=== PATIENT | male | born 1950 | race Caucasian/White ===

== ENCOUNTER 2019-02-06 08:48 | Outpatient (CLI) | payer MEDICARE, OTHER, SELFPAY ==
[2019-02-06 10:54] LABS: Calculated LDL 92 mg/dL; Cholesterol 164 mg/dL (50-200); HDL Cholesterol 59 mg/dL (40-60); TSH 3.99 uIU/mL (0.36-3.74); Triglyceride 66 mg/dL (30-150)
[2019-02-07 10:36] LABS: PSA, Screening 2.5 ng/ml (0-4.5)
== END 2019-02-06 09:08 ==
PROVIDERS: PCP Emergency Medicine; Visit Provider Emergency Medicine
DX: Z12.5 Encounter for screening for malignant neoplasm of prostate (principal); E78.5 Hyperlipidemia, unspecified; E03.9 Hypothyroidism, unspecified
CPT/HCPCS: 36415; 80061; 84153; 84443

== ENCOUNTER 2019-03-20 00:59 | Outpatient (CLI) | payer MEDICARE, OTHER, SELFPAY ==
--- NOTE | 2019-03-20 07:30 | DI.US_ITS ---
APPROVED REPORT EXAM: Comprehensive 2D, Doppler, and color-flow Echocardiogram Patient Location: Out-Patient [employer]: Rox Valdez RDCS (AE) Rhythm: Bradycardia Indications: aortic regurg q23.8. 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 Conclusion Left Ventricle : The left ventricle is normal size. There is normal left ventricular wall thickness. Left ventricular diastolic function is indeterminate. Left ventricular systolic function is normal. There is normal LV segmental wall motion. LVEF is estimated to be 60-65%. Right Ventricle : Right ventricle is mildly dilated. The right ventricular systolic function is yamilet l. Atria : Left atrium is moderately dilated. Right atrium is mildly dilated. Aortic Valve : The Aortic valve is probably tricuspid and moderately sclerotic. Moderate to severe ao rtic regurgitation directed eccentrically posterior. Mild to moderate aortic stenosis (Mean gradient 33mmHg). 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 Mild to moderate mitral regurgitation. No evidence of mitral valve stenosis. Tricuspid Valve : The tricuspid valve leaflets are mildly thickened , but open well. Mild tricuspid r egurgitation. Great Vessels : The IVC is normal in size and collapses >50% with inspiration. Estimated RVSP is 23-3 1mmHg. There is no prior echocardiogram available for comparison. Wall motion Left Ventricle The left ventricle is normal size. Left ventricular systolic function is normal. There is normal left ventricular wall thickness. There is normal LV segmental wall motion. Left ventricular diastolic fun ction is indeterminate. LVEF is estimated to be 60-65%. Right Ventricle Right ventricle is mildly dilated. The right ventricular systolic function is normal. Atria Left atrium is moderately dilated. Right atrium is mildly dilated. Aortic Valve The Aortic valve is probably tricuspid and moderately sclerotic. Mild to moderate aortic stenosis (Me an gradient 33mmHg). Moderate to severe aortic regurgitation directed eccentrically posterior. Multip le regurgitant lesions make regurgitant volume difficult to quantify. 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 No evidence of mitral v alve stenosis. Mild to moderate mitral regurgitation. Tricuspid Valve The tricuspid valve leaflets are mildly thickened , but open well. Mild tricuspid regurgitation. Pulmonic Valve Pulmonic valve leaflets are mildly thickened. Trace to mild pulmonic regurgitation. Great Vessels The aortic root size is normal. The ascending aorta is mildly dilated (3.8cm). The IVC is normal in s ize and collapses >50% with inspiration. Estimated RVSP is 23-31mmHg. Pericardium There is no pericardial effusion. 2D Dimensions IVSd 1.20 cm M: 0.6-1.2 LV EDV A2C 122.80 mL PWd 1.20 cm M: 0.6 - 1.2 LV EDV A4C 159.00 mL LVDd 5.80 cm M: 4.2 - 5.8 LA Volume Index A2C 44.38 mL/m2 LVDs 3.80 cm M: 2.5 - 4.0 LA Volume Index A4C 47.24 mL/m2 Aortic Root 3.60 cm M: 3.1 - 3.7 LA Volume Index Biplane 46.92 mL/m2 RVID Base (AP4) 4.50 cm (M/F) 2.5-4.1 LA Area A4C 25.01 cm2 RA Area A4C 24.43 cm2 LA Area A2C 23.65 cm2 LVOT 2.20 cm (M/F) 1.5-2.5 EF AP4 60.00 % Ascending Aorta 3.80 cm M: 2.6 - 3.4 EF AP2 59.77 % LVEF (Teich) 62.92 % EF BP 59.29 % LVEF (Rajan's) 59.29 % M: 52 - 72 LV Volume 114.63 mL M: 62 - 150 LV Volume Index 60.97 mL/m2 M: 34 - 74 FS 34.55 % LV Diastology E/A Ratio 0.9 MED E' 0.07 (>0.07 m/s) LV E/e MED 6.15 (<14) LAT E' 0.09 (>0.1 m/s) LV E/e LAT 4.65 (<14) Pulm Vein s 0.38 m/s PV S/D Ratio 0.83 Pulm Vein d 0.45 m/s Pulm Vein a 0.27 m/s A-A Duration 185.09 msec Aortic Valve LVOT Area 3.95 cm2 LVOT Peak Chris. 1.25 m/s LVOT Mean Chris. 0.90 m/s LVOT Peak Gr. 6.30 mmHg MARY Vmax Index 0.71 cm2/m2 LVOT Mean Gr. 3.65 mmHg LVOT VTI 0.30 m MARY Mean Chris. Index 0.68 cm2/m2 AoV Peak Chris. 3.73 (0.5-1.3 m/s) AoV Mean Chris. 2.78 m/s AI PHT 491.00 msec AO Peak GR. 55.59 mmHg AO Mean GR. 33.35 (<5 mmHg) AO VTI 1.01 (0.18-0.25 m) VTI Ratio 0.34 MARY (VTI) 1.35 (2.5-4.5 cm2) MARY (VTI) Index 0.72 cm/m2 Vena Contraca 0.90 cm Mitral Valve MV E Max Chris. 0.44 (0.4-1.3 m/s) MV A Velocity 0.50 (0.4-1.3 m/s) E/A Ratio 0.80 MV Decel. Time 384.90 (160-240 msec) MV PHT 111.63 msec MVA PHT 1.95 cm2 Tricuspid Valve TR P. Velocity 2.44 m/s TV Regurg Vmax 2.44 m/s RAP Estimate 8.00 mmHg RVSP 31.90 mmHg TR P. Gradient 23.90 mmHg
== END 2019-03-20 01:19 ==
PROVIDERS: PCP Emergency Medicine; Visit Provider Emergency Medicine
DX: I35.2 Nonrheumatic aortic (valve) stenosis with insufficiency (principal); I51.7 Cardiomegaly; I34.0 Nonrheumatic mitral (valve) insufficiency
CPT/HCPCS: 93306

== ENCOUNTER 2019-04-23 09:13 | Outpatient (CLI) | payer MEDICARE, OTHER, SELFPAY | END 2019-04-23 09:33 | PROVIDERS: PCP Emergency Medicine; Visit Provider Internal Medicine Cardiovascular Disease | DX: I25.10 Atherosclerotic heart disease of native coronary artery without angina pectoris (principal); I35.1 Nonrheumatic aortic (valve) insufficiency; E78.5 Hyperlipidemia, unspecified | CPT/HCPCS: 99205; 93005; 93010 ==

== ENCOUNTER 2019-09-20 03:43 | Outpatient (CLI) | payer MEDICARE, OTHER, SELFPAY ==
[2019-09-20 12:07] LABS: TSH 2.71 uIU/mL (0.36-3.74)
== END 2019-09-20 04:03 ==
PROVIDERS: PCP Emergency Medicine; Visit Provider Emergency Medicine
DX: E03.9 Hypothyroidism, unspecified (principal)
CPT/HCPCS: 36415; 84443

== ENCOUNTER 2019-10-28 10:03 | Outpatient (CLI) | payer MEDICARE, OTHER, SELFPAY ==
[2019-10-30 18:14] LABS: SARS-CoV-2 RNA Undetected (Undetected)
== END 2019-10-28 10:23 ==
PROVIDERS: PCP Emergency Medicine; Visit Provider Emergency Medicine
DX: Z20.828 Contact with and (suspected) exposure to other viral communicable diseases (principal)
CPT/HCPCS: U0003

== ENCOUNTER → 2019-11-07 11:03 | Outpatient (BNVA) | payer MEDICARE, OTHER, SELFPAY | PROVIDERS: PCP Emergency Medicine; Referring Provider Emergency Medicine; Visit Provider Internal Medicine Cardiovascular Disease | DX: I25.10 Atherosclerotic heart disease of native coronary artery without angina pectoris (principal); E78.5 Hyperlipidemia, unspecified; Q24.5 Malformation of coronary vessels; I35.1 Nonrheumatic aortic (valve) insufficiency | CPT/HCPCS: 99442; 99213 ==

== ENCOUNTER 2020-01-06 07:48 | Outpatient (CLI) | payer MEDICARE, OTHER, SELFPAY ==
[2020-01-08 02:53] LABS: Patient Race White; SARS-CoV-2 RNA Undetected (Undetected); SARS-CoV-2 Specimen Source Nasopharynx
== END 2020-01-06 08:08 ==
PROVIDERS: PCP Emergency Medicine; Visit Provider Emergency Medicine
DX: Z11.59 Encounter for screening for other viral diseases (principal)
CPT/HCPCS: U0003

== ENCOUNTER 2020-01-31 02:37 | Outpatient (CLI) | payer MEDICARE, OTHER, SELFPAY ==
[2020-01-31 15:47] LABS: ALT 39 U/L (16-63); AST 29 U/L (15-37); Albumin 3.8 g/dL (3.4-5.0); Alkaline Phosphatase 63 U/L (46-116); Anion Gap 5.8 mmol/L (3-11); BUN 19 mg/dL (7-18); Bilirubin, Total 0.7 mg/dL (0.2-1.0); CO2 31.2 mmol/L (21.0-32.0); CREATININE 1.13 mg/dL (0.70-1.30); Calcium 9.1 mg/dL (8.5-10.1); Chloride 104 mmol/L (98-107); Glucose 86 mg/dL (74-106); Sodium 141 mmol/L (136-145); Total Protein 6.6 g/dL (6.4-8.2)
[2020-01-31 16:01] LABS: Calculated LDL 83 mg/dL (<100); Cholesterol 154 mg/dL (<200); HDL Cholesterol 54 mg/dL (40-60); TSH 3.24 uIU/mL (0.36-3.74); Triglyceride 87 mg/dL (<150)
[2020-02-05 16:21] LABS: PSA, Screening 3.4 ng/mL (0-4.5)
== END 2020-01-31 02:57 ==
PROVIDERS: Internal Medicine Cardiovascular Disease; PCP Emergency Medicine; Visit Provider Emergency Medicine
DX: E03.9 Hypothyroidism, unspecified (principal); E78.5 Hyperlipidemia, unspecified; Z85.46 Personal history of malignant neoplasm of prostate
CPT/HCPCS: 36415; 80053; 80061; 84153; 84443

== ENCOUNTER 2020-05-05 01:04 | Outpatient (CLI) | payer MEDICARE, OTHER, SELFPAY ==
--- NOTE | 2020-05-05 13:59 | DI.US_ITS ---
APPROVED REPORT EXAM: Comprehensive 2D, Doppler, and color-flow Echocardiogram Patient Location: Out-Patient Email Designer: Renetta Weiner RDCS (AE) Indications: Aortic Insufficiency Other Information Study Quality: Adequate Conclusion Left Ventricle : Left ventricle is mildly dilated. The left ventricular systolic function is normal. The left ventricular ejection fraction is within the normal range. There is normal left ventricular w all thickness. There is normal LV segmental wall motion. The left ventricular diastolic function is n ormal. LVEF is 60%. Right Ventricle : Right ventricle is mildly dilated. The right ventricular systolic function is yamilet l. The RVSP is 26.7 mmHg. Atria : Left atrium is moderately dilated. Right atrium is moderately dilated. Aortic Valve : The Aortic valve is sclerotic. Aortic valve is probably trileaflet. Moderate to severe aortic regurgitation Peak aortic valve gradient is 59.8mmHg. Highest mean aortic valve gradient is 36.8mmHg. Calculated MARY by the continuity equation is 1.27 Moderate aortic stenosis. Mitral Valve : Mild mitral annular calcification. Mild to moderate mitral regurgitation. No evidence of mitral valve stenosis. Great Vessels : The aortic root is normal in size. The ascending aorta is normal in size. Aortic arch is normal in caliber. IVC is normal in size and collapses >50% with inspiration. Compared to study from 03/20/2019, the patient's aortic stenosis has worsened slightly and his LV dim ensions have increased from 5.8 to 6 cm. Wall motion Left Ventricle Left ventricle is mildly dilated. The left ventricular systolic function is normal. The left ventricu lar ejection fraction is within the normal range. There is normal left ventricular wall thickness. Th ere is normal LV segmental wall motion. The left ventricular diastolic function is normal. There is n o ventricular septal defect visualized. LVEF is 60%. Right Ventricle Right ventricle is mildly dilated. The right ventricular systolic function is normal. The RVSP is 26. 7 mmHg. Atria Left atrium is moderately dilated. Right atrium is moderately dilated. The interatrial septum is inta ct with no evidence for an atrial septal defect. Aortic Valve The Aortic valve is sclerotic. Aortic valve is probably trileaflet. Peak aortic valve gradient is 59. 8mmHg. Highest mean aortic valve gradient is 36.8mmHg. Calculated MARY by the continuity equation is 1 .27 Moderate aortic stenosis. Moderate to severe aortic regurgitation Mitral Valve Mild mitral annular calcification. No evidence of mitral valve stenosis. Mild to moderate mitral regu rgitation. Tricuspid Valve The tricuspid valve is normal in structure. There is no tricuspid valve stenosis. Trace to mild tricu spid regurgitation. Pulmonic Valve The pulmonary valve is normal in structure. There is no pulmonic valvular stenosis. Trace pulmonic re gurgitation. Great Vessels The aortic root is normal in size. The ascending aorta is normal in size. Aortic arch is normal in ca liber. IVC is normal in size and collapses >50% with inspiration. Pericardium There is no pericardial effusion. 2D Dimensions IVSD d PLAX 1.05 cm M: 0.6-1.2 LV Vol A2C d MOD 202.5 mL LVPW d PLAX 1.03 cm M: 0.6 - 1.2 LV Vol A4C d MOD 194.6 mL LVID d PLAX 6.06 cm M: 4.2 - 5.8 LA vol/ BSA A2C s A-L 39.7 mL/m2 LVDs 3.85 cm M: 2.5 - 4.0 LA vol/ BSA A4C s A-L 40.2 mL/m2 Ao Root d 3.29 cm M: 3.1 - 3.7 LA Vol/ BSA Biplane s A-L 40.3 mL/m2 RA Area A4C 21.88 cm2 LA Area A4C s MOD 22.98 cm2 RA Vol/ BSA A4C s A-L 42.8 mL/m2 LA Area A2C s MOD 22.62 cm2 Ao Asc Diam d 3.43 cm M: 2.6 - 3.4 LV EF A4C MOD 60.3 % LV EF Teichholz 64.7 % LV EF A2C MOD 59.6 % LVEF (Rajan's) 60.19 % M: 52 - 72 LV EF Biplane MOD 60.2 % LV Volume 158.38 mL M: 62 - 150 SV 124.99 mL LV Volume Index 83.35 mL/m2 M: 34 - 74 SV Index 65.66 mL/m2 LV Vol Biplane MOD 207.7 mL FS 36.00 % M-Mode TAPSE 3.31 cm (M/F) >1.7 LV Diastology MV E' medial 0.094 (>0.07 m/s) E/A Ratio 1.1 LV E/e MED 6.45 (<14) MV E Vmax 0.61 (0.4-1.3 m/s) MV E' lateral 0.112 (>0.1 m/s) MV A Vmax 0.55 (0.4-1.3 m/s) LV E/e LAT 5.40 (<14) MV E/A Ratio 1.11 MV E/E' medial 6.49 MV E/E' lateral 5.43 Aortic Valve LVOT Area 3.10 cm2 AoV Area Vmax 1.27 cm2 LVOT Vmax 1.58 m/s AoV Area/ BSA (Vmax) 0.67 cm2/m2 LVOT Mean Chris. 1.25 m/s MARY Mean Chris. 1.34 cm2 LVOT Peak Grad 10.0 mmHg MARY Mean Chris. Index 0.71 cm2/m2 LVOT Mean Grad 6.6 mmHg AR DT 1878 msec LVOT VTI 0.373 m AR PHT 545 msec LVOT Diam s 1.95 cm AoV Vmax 3.86 m/s Velocity Ratio 0.40 AoV Mean Chris. 2.89 m/s AoV Peak Grad 59.8 mmHg LVOT SV 115.86 mL AoV Mean Grad 36.8 mmHg AoV VTI 0.982 m AoV Area VTI 1.18 cm2 AoV Area/ BSA (VTI) 0.62 cm/m2 Mitral Valve MV DT 205 (160-240 msec) MR Vmax 4.86 m/s MV PHT 59 msec MR VTI 1.530 m MV Area PHT 3.70 cm2 MR Peak Grad 94.7 mmHg MV VTI 0.193 m MR Mean Grad 67.2 mmHg MV Area VTI 6.01 (4.0-6.0 cm2) MR PISA Radius 0.55 cm MR EROA 0.13 cm2 MR Aliasing Velocity 0.35 m/s MR PISA 1.87 cm2 Pulmonary Valve PV Vmax 1.11 (0.5-1.5 m/s) RVOT Peak Gr. 2.03 mmHg PV Peak Grad 5.0 mmHg RVOT Mean Gr. 1.10 mmHg PV Mean Grad 2.9 mmHg RVOT VTI 0.156 m PV VTI 0.262 m RVOT Vmax 0.71 m/s Tricuspid Valve TR Peak Grad 23.7 mmHg TR Vmax 2.43 m/s RA Pressure 3.00 mmHg RVSP (TR) 26.7 mmHg
== END 2020-05-05 01:05 | disposition home or self-care (01) ==
LOC: DI 01:05
PROVIDERS: PCP Emergency Medicine; Visit Provider Internal Medicine Cardiovascular Disease
DX: Z98.890 Other specified postprocedural states (principal); I08.0 Rheumatic disorders of both mitral and aortic valves
CPT/HCPCS: 93306

== ENCOUNTER → 2020-05-15 13:32 | Outpatient (BNVA) | payer MEDICARE, OTHER, SELFPAY | PROVIDERS: PCP Emergency Medicine; Referring Provider Emergency Medicine; Visit Provider Internal Medicine Cardiovascular Disease | DX: I25.10 Atherosclerotic heart disease of native coronary artery without angina pectoris (principal); Z98.890 Other specified postprocedural states; E78.5 Hyperlipidemia, unspecified; Q24.5 Malformation of coronary vessels; I35.1 Nonrheumatic aortic (valve) insufficiency | CPT/HCPCS: 99214; 99213 ==

== ENCOUNTER 2020-10-12 07:19 | Day surgery (SDC) | payer MEDICARE, SELFPAY ==
[2020-10-12 07:50] VITALS: BP 113/54; PULSE 45; RESP 15; TEMP 36.1; O2SAT 100
[2020-10-12] MEDS: Tropicam./Phenyleph. (1/2.5%) 5 ML BTL OD ×3 (08:02→08:13)
--- NOTE | 2020-10-12 08:11 | W.ANESPRE ---
General Info Date of Service Date Performed: 10/12/20 Height: 5 ft 9 in Weight: 72.121 kg Body Mass Index (BMI): 23.4 Surgical Procedure: Operation Date: 10/12/20 09:40 Proposed Procedures Side Surgeon p Cataract Extraction with IOL Implant Right Julio Cesar Lee MD Meds Allergies and Home Medications Allergies Allergy/AdvReac Type Severity Reaction Status Date / Time No Known Allergies Allergy Verified 10/09/20 08:35 Home Medication Medication Instructions Recorded aspirin 81 mg tablet,delayed 81 mg PO HS 01/07/19 release levothyroxine 75 mcg PO HS 10/09/20 rosuvastatin 20 mg PO HS 10/09/20 Current Visit Medications: Current Medications Generic Name Dose Route Start Last Admin Trade Name Freq PRN Reason Stop Dose Admin Acetaminophen 1,000 mg 10/12/20 06:00 Acetaminophen 500 Mg Tab PO Q4H PRN PRN Miscellaneous Medication 0 ml 10/12/20 06:00 Prednisolone 1%, Moxifloxacin 0.5%, Nepafenac 0.1% 5ml Btl OD DIRECTED [facility] Miscellaneous Medication 0 ml 10/12/20 06:00 10/12/20 08:07 Tropicam./Phenyleph. 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 Left ventricular hypertrophy ~02/10/17 I51.7 Aortic regurgitation 04/2016 I35.1 S/P colonoscopic polypectomy 07/2015 Z98.890 Hypothyroidism ~06/2010 E03.9 Hyperlipidemia ~06/2010 E78.5 Medical History Medical History (Updated 10/11/20 @ 17:07 by Julio Cesar Lee MD) Anomaly of coronary artery (~05/10/17) Aortic regurgitation (04/2016) 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 (~04/24/17) Coronary artery disease involving [place] heart without angina pectoris (~05/10/17) Dislocated shoulder Hyperlipidemia (~06/2010) Left ventricular hypertrophy (~02/10/17) Surgical History Surgical History S/P colonoscopic polypectomy (07/2015) Tobacco Smoking/Tobacco Use Status: Never Passive smoking exposure: No Second hand exposure: No Alcohol Alcohol Intake: current Alcohol intake frequency: a few times a month Alcohol type: wine Substance Use Substance use: Never Substance use type: does not use Vital Signs and Lab Results Vital Signs Most Recent Vital Signs in EMR: Most Recent Vital Signs Temp Pulse Resp BP Pulse Ox 36.1 C L 45 L 15 113/54 L 100 10/12/20 07:50 10/12/20 07:50 10/12/20 07:50 10/12/20 07:50 10/12/20 07:50 Lab Results Blood Type / Crossmatch: No Data to Display Complete Blood Count: No Data to Display Complete Metabolic Panel: No Data to Display Liver Function Panel: No Data to Display Coagulation Panel: No Data to Display Cardiac Panel: No Data to Display Arterial Blood Gas: No Data to Display Venous Blood Gas: No Data to Display Pancreas Panel: No Data to Display Thyroid Panel: No Data to Display Infectious Disease: No Data to Display Blood Cultures: No Data to Display Toxicology Panel: No Data to Display Imaging and Studies Imaging and Studies Echocardiogram Summary: 05/05/20 Conclusion Left Ventricle : Left ventricle is mildly dilated. The left ventricular systolic function is normal. The left ventricular ejection fraction is within the normal range. There is normal left ventricular wall thickness. There is normal LV segmental wall motion. The left ventricular diastolic function is normal. LVEF is 60%. Right Ventricle : Right ventricle is mildly dilated. The right ventricular systolic function is normal. The RVSP is 26.7 mmHg. Atria : Left atrium is moderately dilated. Right atrium is moderately dilated. Aortic Valve : The Aortic valve is sclerotic. Aortic valve is probably trileaflet. Moderate to severe aortic regurgitation Peak aortic valve gradient is 59.8mmHg. Highest mean aortic valve gradient is 36.8mmHg. Calculated MARY by the continuity equation is 1.27 Moderate aortic stenosis. Mitral Valve : Mild mitral annular calcification. Mild to moderate mitral regurgitation. No evidence of mitral valve stenosis. Great Vessels : The aortic root is normal in size. The ascending aorta is normal in size. Aortic arch is normal in caliber. IVC is normal in size and collapses >50% with inspiration. Compared to study from 03/20/2019, the patient's aortic stenosis has worsened slightly and his LV dimensions have increased from 5.8 to 6 cm. Anesthesia Assessment and Plan Anesthesia History Personal History: No History of Anesthesia Complications Family History: No Family History of Anesthesia Complications Exercise Tolerance Exercise Tolerance: Metabolic Equivalents>4 Pertinent Negatives Pertinent Negatives: No Symptoms of GERD, No Major Pulmonary Symptoms or Complaints and No History of CVA/TIA Cardiac & Pulmonary Exam Cardiac Exam: Normal S1/S2 Heart Sounds Pulmonary Exam: Clear Bilateral Breath Sounds Airway Exam Known Difficult Airway: No Mallampati Class: 2 Mouth Opening: Normal (> 3cm) Thyromental Distance: Greater than 3 cm Neck Range of Motion: Full ROM Neck Circumference: Normal Teeth Condition: Normal Dentition ASA Classification ASA Score: ASA 3 Emergency Case?: No NPO Status NPO Status: NPO Clears >2 hours, Solids >8 hours Anesthesia Plan Resuscitation Status: Full Code Anesthesia Technique: MAC Anesthesia Airway Planned: Natural Airway Monitors Used: Standard Monitors
[2020-10-12 08:30] VITALS: BMI 23.4
[2020-10-12] MEDS: Tetracaine 0.5% 4 ML BTL OD (09:43)
[2020-10-12] MEDS: Balanced Salt Soln.-PLUS 500 ML BAG (09:44)
[2020-10-12] MEDS: Duovisc Viscoelastic System EACH 1 EACH (09:44)
[2020-10-12] MEDS: Lidocaine 1% Pres-Free 5 ML VIAL (09:45)
[2020-10-12] MEDS: Lidocaine 2% Jelly 6 ML SYR (09:46)
--- NOTE | 2020-10-12 09:52 | W.PM.DSUDISC ---
Discharge Plan Disposition Patient Disposition: HOME Condition: Good Discharge Details Reason For Visit: CATARACT Attending Provider: Julio Cesar Lee Primary Care Provider: Viraj Paez Home Meds and New Rx's Prescriptions: No Action aspirin [Aspirin Low Dose] 81 mg tablet,delayed release (DR/EC) 81 mg PO HS RF: 0 rosuvastatin 20 mg tablet 20 mg PO HS RF: 0 levothyroxine 75 mcg capsule 75 mcg PO HS RF: 0 Discharge Instructions Stand Alone Forms: Post-op Topical Cataract, Flor Ferris (DSU) Discharge Orders Discharge Orders: Discharge Order (Routine); Ordered 10/12/20 Ordered By: Julio Cesar Lee DS: Diagnosis Discharge Diagnosis (1) Cortical cataract of right eye: Status: Resolved (2) Nuclear sclerotic cataract of right eye: Status: Resolved
[2020-10-12] MEDS: Povidone-Iodine Ophth 30 ML BTL (09:53)
--- NOTE | 2020-10-12 09:53 | W.PM.OP ---
Date of service: 10/12/20 Time of Service: 09:53 Operative Note Operative Note DATE OF PROCEDURE: 10/12/20 PRE-OP DIAGNOSIS: Nuclear/cortical cataract, right eye POST-OP DIAGNOSIS: same PROCEDURE: Cataract extraction using phacoemulsification with intraocular lens implant, right eye SURGEON: Julio Cesar Lee ANESTHESIA TYPE: Local By Surgeon and MAC Refer to Anesthesia Record ESTIMATED BLOOD LOSS: 0 PATHOLOGY: none sent COMPLICATIONS: None Patient was transported to: same day Patient's condition: stable Implants: [employer] / [employer] Tecnis [id number] intraocular lens Indications: Progressive decreased vision due to cataract, right eye Procedure Description: CATARACT SURGERY OPERATIVE REPORT PREOPERATIVE DIAGNOSIS: Nuclear/cortical cataract, right eye POSTOPERATIVE DIAGNOSIS: Same OPERATION: Cataract extraction using phacoemulsification with posterior chamber intraocular lens implant, right eye. IOL: IOL [employer] Partner/Model: [employer] / HAILE Tecnis ZCB00 IOL Power: + 15.0 diopters IOL Serial Number: [id number] Optic Diameter: 6.0mm Haptic/Overall Diameter: 13.0mm PHACO INFO: Braeden Dishableurion Vision System with OZil and Active [employer]uidics Cumulative Dispersed Energy (CDE): 6.47 seconds SURGEON: Julio Cesar Lee MD, KARMEN ANESTHESIA: Monitored Anesthesia Care (MAC), with local sub-tenon's anesthetic infiltration COMPLICATIONS: None SPECIMENS: None INDICATIONS FOR PROCEDURE: The patient is a 70-year-old gentleman with history of diminished visual acuity in his right eye. He is noted to have a significant nuclear and cortical cataract in the right eye as well as moderate myopia. He elected to proceed without oral sedation. The patient was brought to the operating room where cardiopulmonary monitoring was instituted and surgical time-out was performed, confirming the correct operative eye and IOL power. Topical anesthesia was administered and ophthalmic povidone-iodine 5% was instilled into the conjunctival fornices. Lidocaine gel was applied to the cornea and the ida-ocular area was prepped with Betadine 10% solution and draped in the usual sterile fashion for intraocular surgery, including an aperture drape. A Tegaderm transparent film dressing was cut in half and used to cover the lashes and lid margins. Care was taken to sequester the lashes and lid margins under the Tegaderm dressing. A lid speculum was placed between the lids of the operative eye and the Jim-Sterling operating microscope was maneuvered into position. Kayce scissors were then used to make a conjunctival buttonhole approximately 6mm posterior to the limbus in the inferonasal quadrant. Blunt dissection was carried out to expose bare sclera, and a blunt-tipped sub-tenon?s anesthesia cannula was introduced and passed posteriorly along the globe where non-preserved plain lidocaine was injected into posterior sub-Tenon?s space. A sideport knife was used to make a paracentesis port inferiortemporally. Intraocular phenylephrine/lidocaine was injected into the anterior chamber. The anterior chamber was then filled with viscoelastic. A 2.4mm keratome knife was used to create a half-thickness groove at the limbus and then to construct a three-plane near-clear corneal tunnel extending 2.0mm into clear cornea in the superiortemporal position. . A flap was raised on the anterior capsule and capsulorhexis forceps were used to complete a continuous curvilinear capsulorhexis of 5.5 mm. Balanced salt solution was then used to perform cortical cleaving hydrodissection and nuclear hydrodelineation until the lens could be freely rotated within the capsular bag. The lens nucleus was then disassembled and removed within the capsular bag and iris plane using phacoemulsification. Residual cortical material was removed using the I/A handpiece. The posterior capsule was carefully polished to remove as much residual lens epithelial cells as safely possible. The capsular bag was then inflated and the anterior chamber deepened with viscoelastic. The lens implant described above was inserted into the capsular bag using the HAILE Mcdonald Injector. A Kuglen hook was used to dial the IOL into position. Residual viscoelastic was then removed first from posterior to the IOL, then from the anterior chamber using the I/A handpiece. The lens implant was noted to center nicely within the capsular bag. The incisions were stromally hydrated, and the anterior chamber was reformed using BSS. Then 0.5cc of moxifloxacin 1.0mg/ml were injected into the capsular bag and anterior chamber. The incisions were checked with a Weck spear and found to be secure. Several drops of ophthalmic povidone-iodine 5% were then applied to the eye followed by two drops of Imprimis combination prednisolone/moxifloxacin/nepafenac solution. The drapes were removed and a clear plastic protective eye shield was placed over the eye. The patient was then returned to Same Day Surgery in stable condition.
[2020-10-12 10:05] VITALS: BP 103/57; PULSE 41; RESP 14; TEMP 36; O2SAT 99
--- NOTE | 2020-10-12 10:22 | W.ANESPOSTOP ---
Postoperative Evaluation Date, Time and Location Date Performed: 10/12/20 Time Performed: 10:22 Patient Location: Day Surgery Unit Vital Signs Most Recent Imported Vital Signs: Most Recent Vital Signs Temp Pulse Resp BP Pulse Ox 36.0 C L 41 L 14 103/57 L 99 10/12/20 10:05 10/12/20 10:05 10/12/20 10:05 10/12/20 10:05 10/12/20 10:05 Pain Score Most Recent Pain Score: Most Recent Pain Score Pain Level 0 10/12/20 10:05 Assessment Mental Status: Awake (Alert & Oriented to Patient Baseline) Airway and Respiratory Function: Patent airway with normal (patient baseline) respiratory exam Cardiovascular Function: Hemodynamically Stable Hydration Status: Adequately Hydrated Nausea & Vomiting: No Nausea or Vomiting Pain: Pt. Denies Any Pain Peripheral Nerve Block: Patient did not receive a nerve block
== END 2020-10-12 10:15 | disposition home or self-care (01) ==
PROVIDERS: PCP Emergency Medicine; Visit Provider Ophthalmology
PROC: (CPT 66984; principal; 2020-10-12 09:30)
DX: H25.11 Age-related nuclear cataract, right eye (principal); I25.10 Atherosclerotic heart disease of native coronary artery without angina pectoris
CPT/HCPCS: 66984; V2632

== ENCOUNTER 2020-10-26 08:08 | Day surgery (SDC) | payer MEDICARE, SELFPAY ==
--- NOTE | 2020-10-26 08:28 | W.ANESPRE ---
General Info Date of Service Date Performed: 10/26/20 Height: 5 ft 9 in Weight: 72.121 kg Body Mass Index (BMI): 23.4 Surgical Procedure: Operation Date: 10/26/20 10:40 Proposed Procedures Side Surgeon p Cataract Extraction with IOL Implant Left Julio Cesar Lee MD Meds Allergies and Home Medications Allergies Allergy/AdvReac Type Severity Reaction Status Date / Time No Known Allergies Allergy Verified 10/26/20 08:28 Home Medication Medication Instructions Recorded aspirin 81 mg tablet,delayed 81 mg PO HS 01/07/19 release levothyroxine 75 mcg PO HS 10/09/20 rosuvastatin 20 mg PO HS 10/09/20 Current Visit Medications: Current Medications Generic Name Dose Route Start Last Admin Trade Name Freq PRN Reason Stop Dose Admin Acetaminophen 1,000 mg 10/26/20 06:00 Acetaminophen 500 Mg Tab PO Q4H PRN PRN Miscellaneous Medication 0 ml 10/26/20 06:00 Prednisolone 1%, Moxifloxacin 0.5%, Nepafenac 0.1% 5ml Btl OS DIRECTED [facility] Miscellaneous Medication 0 ml 10/26/20 06:00 Tropicam./Phenyleph. 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 Left ventricular hypertrophy ~02/10/17 I51.7 Aortic regurgitation 04/2016 I35.1 S/P colonoscopic polypectomy 07/2015 Z98.890 Hyperlipidemia ~06/2010 E78.5 Medical History Medical History Anomaly of coronary artery (~05/10/17) Aortic regurgitation (04/2016) 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 (~04/24/17) Coronary artery disease involving [place] heart without angina pectoris (~05/10/17) Dislocated shoulder Hyperlipidemia (~06/2010) Left ventricular hypertrophy (~02/10/17) Surgical History Surgical History Hx of cataract surgery Hx of shoulder surgery 1979, right dislocated S/P colonoscopic polypectomy (07/2015) Tobacco Smoking/Tobacco Use Status: Never Passive smoking exposure: No Second hand exposure: No Alcohol Alcohol Intake: current Alcohol intake frequency: a few times a month Alcohol type: wine Substance Use Substance use: Never Substance use type: does not use Vital Signs and Lab Results Lab Results Blood Type / Crossmatch: No Data to Display Complete Blood Count: No Data to Display Complete Metabolic Panel: No Data to Display Liver Function Panel: No Data to Display Coagulation Panel: No Data to Display Cardiac Panel: No Data to Display Arterial Blood Gas: No Data to Display Venous Blood Gas: No Data to Display Pancreas Panel: No Data to Display Thyroid Panel: No Data to Display Infectious Disease: No Data to Display Blood Cultures: No Data to Display Toxicology Panel: No Data to Display Imaging and Studies Imaging and Studies Echocardiogram Summary: 05/05/20 Conclusion Left Ventricle : Left ventricle is mildly dilated. The left ventricular systolic function is normal. The left ventricular ejection fraction is within the normal range. There is normal left ventricular wall thickness. There is normal LV segmental wall motion. The left ventricular diastolic function is normal. LVEF is 60%. Right Ventricle : Right ventricle is mildly dilated. The right ventricular systolic function is normal. The RVSP is 26.7 mmHg. Atria : Left atrium is moderately dilated. Right atrium is moderately dilated. Aortic Valve : The Aortic valve is sclerotic. Aortic valve is probably trileaflet. Moderate to severe aortic regurgitation Peak aortic valve gradient is 59.8mmHg. Highest mean aortic valve gradient is 36.8mmHg. Calculated MARY by the continuity equation is 1.27 Moderate aortic stenosis. Mitral Valve : Mild mitral annular calcification. Mild to moderate mitral regurgitation. No evidence of mitral valve stenosis. Great Vessels : The aortic root is normal in size. The ascending aorta is normal in size. Aortic arch is normal in caliber. IVC is normal in size and collapses >50% with inspiration. Compared to study from 03/20/2019, the patient's aortic stenosis has worsened slightly and his LV dimensions have increased from 5.8 to 6 cm. Anesthesia Assessment and Plan Anesthesia History Personal History: No History of Anesthesia Complications Family History: No Family History of Anesthesia Complications Exercise Tolerance Exercise Tolerance: Metabolic Equivalents>4 Pertinent Negatives Pertinent Negatives: No Symptoms of GERD, No Major Cardiovascular Symptoms or Complaints, No Major Pulmonary Symptoms or Complaints and No History of CVA/TIA Cardiac & Pulmonary Exam Cardiac Exam: Normal S1/S2 Heart Sounds Pulmonary Exam: Clear Bilateral Breath Sounds Airway Exam Known Difficult Airway: No Mallampati Class: 2 Mouth Opening: Normal (> 3cm) Thyromental Distance: Greater than 3 cm Neck Range of Motion: Full ROM Neck Circumference: Normal Teeth Condition: Normal Dentition ASA Classification ASA Score: ASA 3 Emergency Case?: No NPO Status NPO Status: NPO Clears >2 hours, Solids >8 hours Anesthesia Plan Resuscitation Status: Full Code Anesthesia Technique: MAC Anesthesia Airway Planned: Natural Airway Monitors Used: Standard Monitors
[2020-10-26] MEDS: Tropicam./Phenyleph. (1/2.5%) 5 ML BTL OS ×3 (08:29→08:39)
[2020-10-26 08:30] VITALS: BP 112/65; PULSE 46; RESP 16; TEMP 35.9; O2SAT 99
[2020-10-26 08:53] VITALS: BMI 23.4
[2020-10-26] MEDS: Tetracaine 0.5% 4 ML BTL OS (09:22)
[2020-10-26] MEDS: Lidocaine 2% Jelly 6 ML SYR (09:22)
[2020-10-26] MEDS: Povidone-Iodine Ophth 30 ML BTL (09:22)
[2020-10-26] MEDS: Lidocaine 1% Pres-Free 5 ML VIAL (09:30)
--- NOTE | 2020-10-26 09:30 | RT.EKG_ITS ---
APPROVED REPORT Exam: Resting ECG Reason for Exam: New potential 2nd degree AV block Patient Location: O HR:42 bpm ECG Measurements Heart Rate 42 AXIS MA 394 P 45 QRSd 100 QRS 56 QT 510 T 15 QTc 427 Conclusion Second degree AV block, Mobitz II...multiple P waves Atrial premature complex...SV complex w/ short R-R interval
[2020-10-26] MEDS: Balanced Salt Soln.-PLUS 500 ML BAG (09:31)
[2020-10-26] MEDS: Duovisc Viscoelastic System EACH 1 EACH (09:31)
--- NOTE | 2020-10-26 09:49 | W.PM.DSUDISC ---
Discharge Plan Disposition Patient Disposition: HOME Condition: Good Discharge Details Attending Provider: Julio Cesar Lee Primary Care Provider: Viraj Paez Home Meds and New Rx's Prescriptions: No Action aspirin [Aspirin Low Dose] 81 mg tablet,delayed release (DR/EC) 81 mg PO HS RF: 0 rosuvastatin 20 mg tablet 20 mg PO HS RF: 0 levothyroxine 75 mcg capsule 75 mcg PO HS RF: 0 Discharge Instructions Stand Alone Forms: Post-op Topical Cataract, Flor Ferris (DSU) Discharge Orders Discharge Orders: Discharge Order (Routine); Ordered 10/26/20 Ordered By: Julio Cesar Lee DS: Diagnosis Discharge Diagnosis (1) Nuclear sclerotic cataract of left eye: Status: Resolved (2) Cortical cataract of left eye: Status: Resolved
[2020-10-26 09:50] VITALS: BP 110/47; PULSE 42; RESP 16; TEMP 36.2; O2SAT 98
--- NOTE | 2020-10-26 09:50 | ROE_ITS ---
Date of service: 10/26/20 Time of Service: 09:50 Operative Note Operative Note DATE OF PROCEDURE: 10/26/20 PRE-OP DIAGNOSIS: Nuclear/cortical cataract, left eye POST-OP DIAGNOSIS: same PROCEDURE: Cataract extraction using phacoemulsification with intraocular lens implant, left eye SURGEON: Julio Cesar Lee ANESTHESIA TYPE: Local By Surgeon and MAC Refer to Anesthesia Record PATHOLOGY: none sent COMPLICATIONS: None Patient was transported to: same day Patient's condition: stable Implants: Manuel [employer] Manuel / [employer] Tecnis [id number] Indications: Progressive decreased vision due to cataract, left eye, with poor red reflex Procedure Description: CATARACT SURGERY OPERATIVE REPORT PREOPERATIVE DIAGNOSIS: 1. Nuclear/cortical cataract, left eye POSTOPERATIVE DIAGNOSIS: Same OPERATION: 1. Cataract extraction using phacoemulsification with posterior chamber intraocular lens implant, left eye. IOL: IOL Retort Load Expediter/Model: Manuel & Manuel / HAILE Tecnis [id number] IOL Power: + 15.0 diopters IOL Serial Number: [id number] Optic Diameter: 6.0 mm Haptic/Overall Diameter: 13.0 mm PHACO INFO: Braeden maufaiturion Vision System with OZil and Active Fluidics Cumulative Dispersed Energy (CDE): 4.54 seconds SURGEON: Julio Cesar Lee MD, KARMEN ANESTHESIA: Monitored A [facility] (MAC), with local sub-tenon's anesthetic infiltration COMPLICATIONS: None SPECIMENS: None INDICATIONS FOR PROCEDURE: Patient is a 70-year-old gentleman with history of diminished visual acuity in both eyes secondary to the development of bilateral nuclear and cortical cataract. He has already undergone cataract surgery in the right eye and is doing well postoperatively. He now presents for cataract surgery in the left eye. PROCEDURE: The correct surgical eye was identified and marked as the left eye and the pupil was dilated in the preoperative area using mydriatics and cycloplegics. The dilated pupil size was 7.0 mm. He elected to proceed without oral sedation. The patient was brought to the operating room where cardiopulmonary monitoring was instituted and surgical time-out was performed, confirming the correct operative eye and IOL power. Topical anesthesia was administered and ophthalmic povidone-iodine 5% was instilled into the conjunctival fornices. Lidocaine gel was applied to the cornea and the ida-ocular area was prepped with Betadine 10% solution and draped in the usual sterile fashion for intraocular surgery, including an aperture drape. A Tegaderm transparent film dressing was cut in half and used to cover the lashes and lid margins. Care was taken to sequester the lashes and lid margins under the Tegaderm dressing. A lid speculum was placed between the lids of the operative eye and the Jim-Sterling operating microscope was maneuvered into position. Kayce scissors were then used to make a conjunctival buttonhole approximately 6mm posterior to the limbus in the inferonasal quadrant. Blunt dissection was carried out to expose bare sclera, and a blunt-tipped sub-tenon?s anesthesia cannula was introduced and passed posteriorly along the globe where non- preserved plain lidocaine was injected into posterior sub-Tenon?s space. A sideport knife was used to make a paracentesis port superiorly/superiortemporally. Intraocular phenylephrine/lidocaine was injected int the anterior chamber.. Air was then injected into the anterior chamber, followed by Vision Blue, which was painted over the anterior capsule and then irrigated out using BSS. The anterior chamber was filled with viscoelastic. A 2.4mm keratome knife was used to create a half-thickness groove at the limbus and then to construct a three-plane near-clear corneal tunnel extending 2.0mm into clear cornea at the 3:00 position. A flap was raised on the anterior capsule and capsulorhexis forceps were used to complete a continuous curvilinear capsulorhexis of 5.5 mm. Balanced salt solution was then used to perform cortical cleaving hydrodissection and nuclear hydrodelineation until the lens could be freely rotated within the capsular bag. The lens nucleus was then disassembled and removed within the capsular bag and iris plane using phacoemulsification. Residual cortical material was removed using the 45-degree angled silicone I/A tip with 0.3mm port. The posterior capsule was carefully polished to remove as much residual lens epithelial cells as safely possible. The capsular bag was then inflated and the anterior chamber deepened with viscoelastic. The lens implant described above was inserted into the capsular bag using the HAILE [place] Injector. A Kuglen hook was used to dial the IOL into position. Residual viscoelastic was then removed first from posterior to the IOL, then from the anterior chamber using the I/A handpiece. The lens implant was noted to center nicely within the capsular bag. The incisions were stromally hydrated, and the anterior chamber was reformed using BSS. Then 0.5cc of moxifloxacin 1.0mg/ml were injected into the capsular bag and anterior chamber. The incisions were checked with a Weck spear and found to be secure. Several drops of ophthalmic povidone-iodine 5% were then applied to the eye followed by two drops of Imprimis combination prednisolone/moxifloxacin/nepafenac solution. The drapes were removed and a clear plastic protective eye shield was placed over the eye. The patient was then returned to [facility] Day Surgery in stable condition.
--- NOTE | 2020-10-26 10:07 | W.ANESPOSTOP ---
Postoperative Evaluation Date, Time and Location Date Performed: 10/26/20 Time Performed: 10:08 Patient Location: PACU Vital Signs Most Recent Imported Vital Signs: Most Recent Vital Signs Temp Pulse Resp BP Pulse Ox 36.2 C L 42 L 16 110/47 L 98 10/26/20 09:50 10/26/20 09:50 10/26/20 09:50 10/26/20 09:50 10/26/20 09:50 Pain Score Most Recent Pain Score: Most Recent Pain Score Pain Level 0 10/26/20 09:50 Assessment Mental Status: Awake (Alert & Oriented to Patient Baseline) Airway and Respiratory Function: Patent airway with normal (patient baseline) respiratory exam Cardiovascular Function: Hemodynamically Stable Hydration Status: Adequately Hydrated Nausea & Vomiting: No Nausea or Vomiting Pain: Pt. Denies Any Pain Peripheral Nerve Block: Patient did not receive a nerve block Teaching Patient Teaching: Advised to seek followup for the following concerns (See explanation) (see below) Concerns: Other Postoperative Comments:: post operative 12 lead reveals 2nd degree HB. His BP is normal, he feels no palpitations, denies dizziness or lightheadedness. EKG shown to cardiology, who agrees that if he is asymptomatic that he is okay to go home. Jose Armando was educated on all of this and was told to follow up with his PCP. Jose Armando states that he has an appointment with cardiology in early November, and states he can call his PCP to make sure they are okay with him waiting until november. he verbalizes understanding.
== END 2020-10-26 10:38 | disposition home or self-care (01) ==
PROVIDERS: PCP Emergency Medicine; Visit Provider Ophthalmology
PROC: (CPT 66984; principal; 2020-10-26 10:30)
DX: H25.12 Age-related nuclear cataract, left eye (principal)
CPT/HCPCS: 66984; V2632

== ENCOUNTER 2020-11-11 02:21 | Outpatient (CLI) | payer MEDICARE, SELFPAY ==
--- NOTE | 2020-11-11 10:24 | DI.US_ITS ---
APPROVED REPORT EXAM: Comprehensive 2D, Doppler, and color-flow Echocardiogram Patient Location: Out-Patient Cat Driver: Renetta Weiner RDCS (AE) Indications: Aortic Insufficiency Other Information Study Quality: Adequate Conclusion Left Ventricle : The left ventricle is upper normal size. The left ventricular ejection fraction is w ithin the normal range. There is normal left ventricular wall thickness. There is normal LV segmental wall motion. The left ventricular diastolic function is normal. LVEF is 60-65%. Right Ventricle : The right ventricle is normal size. The right ventricular systolic function is norm al. Atria : Left atrium is mildly dilated. Right atrium is mildly dilated. Aortic Valve : The Aortic valve is sclerotic. Aortic valve is calcified. Aortic valve is probably tri leaflet. Moderate to severe aortic regurgitation Moderate aortic stenosis. Peak aortic valve gradien t is 57.2_mmHg. Highest mean aortic valve gradient is 34.3_mmHg. Calculated MARY by the continuity equ ation is 1.07cm2. Mitral Valve : Mild mitral annular calcification. Moderate mitral regurgitation. No evidence of luh l valve stenosis. Great Vessels : The aortic root is normal in size. The ascending aorta is mildly dilated. Aortic arch is normal in caliber. IVC is normal in size and collapses >50% with inspiration. Compared to study from 05/05/2020, there is no significant change. Wall motion Left Ventricle The left ventricle is upper normal size. The left ventricular ejection fraction is within the normal range. There is normal left ventricular wall thickness. There is normal LV segmental wall motion. The left ventricular diastolic function is normal. There is no ventricular septal defect visualized. LVE F is 60-65%. Right Ventricle The right ventricle is normal size. The right ventricular systolic function is normal. Atria Left atrium is mildly dilated. Right atrium is mildly dilated. The interatrial septum is intact with no evidence for an atrial septal defect. Aortic Valve The Aortic valve is sclerotic. Aortic valve is calcified. Aortic valve is probably trileaflet. Modera te aortic stenosis. Peak aortic valve gradient is 57.2_mmHg. Highest mean aortic valve gradient is 34 .3_mmHg. Calculated MARY by the continuity equation is 1.07cm2. Moderate to severe aortic regurgitatio n Mitral Valve Mild mitral annular calcification. No evidence of mitral valve stenosis. Moderate mitral regurgitatio n. Tricuspid Valve The tricuspid valve is normal in structure. There is no tricuspid valve stenosis. Trace tricuspid reg urgitation. Pulmonic Valve The pulmonary valve is normal in structure. There is no pulmonic valvular stenosis. Trace pulmonic re gurgitation. Great Vessels The aortic root is normal in size. The ascending aorta is mildly dilated. Aortic arch is normal in ca liber. IVC is normal in size and collapses >50% with inspiration. Pericardium There is no pericardial effusion. 2D Dimensions IVSD d PLAX 1.01 cm M: 0.6-1.2 LV Vol A2C d MOD 200.3 mL LVPW d PLAX 1.00 cm M: 0.6 - 1.2 LV Vol A4C d MOD 177.8 mL LVID d PLAX 5.88 cm M: 4.2 - 5.8 LA vol/ BSA A2C s A-L 39.6 mL/m2 LVDs 4.00 cm M: 2.5 - 4.0 LA vol/ BSA A4C s A-L 32.8 mL/m2 Ao Root d 3.38 cm M: 3.1 - 3.7 LA Vol/ BSA Biplane s A-L 36.9 mL/m2 RA Area A4C 17.40 cm2 LA Area A4C s MOD 19.99 cm2 RA Vol/ BSA A4C s A-L 28.7 mL/m2 LA Area A2C s MOD 22.46 cm2 Ao Asc Diam d 3.58 cm M: 2.6 - 3.4 LV EF A4C MOD 60.1 % LV EF Teichholz 58.8 % LV EF A2C MOD 65.1 % LVEF (Rajan's) 63.48 % M: 52 - 72 LV EF Biplane MOD 63.5 % LV Volume 148.12 mL M: 62 - 150 SV 122.39 mL LV Volume Index 79.63 mL/m2 M: 34 - 74 SV Index 65.67 mL/m2 LV Vol Biplane MOD 192.8 mL FS 31.60 % M-Mode TAPSE 2.51 cm (M/F) >1.7 LV Diastology MV E' medial 0.079 (>0.07 m/s) E/A Ratio 0.9 LV E/e MED 6.20 (<14) MV E Vmax 0.50 (0.4-1.3 m/s) MV E' lateral 0.101 (>0.1 m/s) MV A Vmax 0.55 (0.4-1.3 m/s) LV E/e LAT 4.85 (<14) MV E/A Ratio 0.87 MV E/E' medial 6.24 MV E/E' lateral 4.88 Aortic Valve LVOT Area 3.22 cm2 AoV Area Vmax 1.07 cm2 LVOT Vmax 1.26 m/s AoV Area/ BSA (Vmax) 0.58 cm2/m2 LVOT Mean Chris. 0.85 m/s MARY Mean Chris. 0.98 cm2 LVOT Peak Grad 6.3 mmHg MARY Mean Chris. Index 0.52 cm2/m2 LVOT Mean Grad 3.4 mmHg AR DT 2466 msec LVOT VTI 0.336 m AR PHT 715 msec LVOT Diam s 2.00 cm AoV Vmax 3.78 m/s Velocity Ratio 0.33 AoV Mean Chris. 2.80 m/s AoV Peak Grad 57.2 mmHg LVOT SV 108.23 mL AoV Mean Grad 34.3 mmHg AoV VTI 0.975 m AoV Area VTI 1.11 cm2 AoV Area/ BSA (VTI) 0.60 cm/m2 Mitral Valve MV DT 160 (160-240 msec) MR Vmax 4.96 m/s MV PHT 46 msec MR VTI 1.668 m MV Area PHT 4.75 cm2 MR Peak Grad 98.5 mmHg MR Mean Grad 71.6 mmHg MR PISA Radius 0.47 cm MR EROA 0.10 cm2 MR Aliasing Velocity 0.35 m/s MR PISA 1.42 cm2 Pulmonary Valve PV Vmax 0.84 (0.5-1.5 m/s) RVOT Peak Gr. 2.51 mmHg PV Peak Grad 2.8 mmHg RVOT Mean Gr. 1.15 mmHg PV Mean Grad 1.4 mmHg RVOT VTI 0.189 m PV VTI 0.179 m RVOT Vmax 0.79 m/s Tricuspid Valve TR Peak Grad 21.2 mmHg TR Vmax 2.31 m/s RA Pressure 3.00 mmHg RVSP (TR) 24.3 mmHg
== END 2020-11-11 02:41 ==
PROVIDERS: PCP Emergency Medicine; Visit Provider Internal Medicine Cardiovascular Disease
DX: I08.0 Rheumatic disorders of both mitral and aortic valves; I77.810 Thoracic aortic ectasia
CPT/HCPCS: 93306

== ENCOUNTER → 2020-11-17 10:36 | Outpatient (BNVA) | payer MEDICARE, SELFPAY | PROVIDERS: PCP Emergency Medicine; Referring Provider Emergency Medicine; Visit Provider Internal Medicine Cardiovascular Disease | DX: I25.10 Atherosclerotic heart disease of native coronary artery without angina pectoris (principal); I51.7 Cardiomegaly; I35.1 Nonrheumatic aortic (valve) insufficiency; Z98.890 Other specified postprocedural states | CPT/HCPCS: 99214; 99213 ==

== ENCOUNTER 2020-12-15 07:28 | Outpatient (CLI) | payer MEDICARE, SELFPAY ==
--- NOTE | 2021-01-12 15:53 | ZIOP_ITS ---
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 Average heart rate was 56. Minimum was 36 maximum 129. there were occasional ventricular ectopic beats,comprising 0.45% of total beats There were rare ventricular couplets. There were 2 ventricular triplets.. There was one 9 beat run of nonsustained ventricular tachycardia Mobitz 1 second-degree AV block was noted during sleep There were no pauses greater than 3 seconds. There was no atrial fibrillation. Patient symptoms were reported
== END 2020-12-15 07:29 | disposition home or self-care (01) ==
LOC: RT 07:35
PROVIDERS: PCP Emergency Medicine; Visit Provider Internal Medicine Cardiovascular Disease
DX: R00.2 Palpitations (principal)
CPT/HCPCS: 93246

== ENCOUNTER 2021-01-12 15:53 | Outpatient (CLI) | payer MEDICARE, SELFPAY | END 2021-01-12 15:54 | LOC: CARDO 01-13 09:51 | PROVIDERS: PCP Emergency Medicine; Referring Provider Emergency Medicine; Visit Provider Internal Medicine Cardiovascular Disease | DX: R00.2 Palpitations (principal); I49.3 Ventricular premature depolarization; I47.2 Ventricular tachycardia; I44.1 Atrioventricular block, second degree | CPT/HCPCS: 93248 ==

== ENCOUNTER 2021-01-20 13:30 | Outpatient (CLI) | payer MEDICARE, SELFPAY ==
--- NOTE | 2021-01-20 11:30 | DI.RAD_ITS ---
Exam(s) XR LUMBAR SPINE COMPLETE EXAM: XR LUMBAR SPINE COMPLETE CLINICAL HISTORY: left sciatica,m54.32. TECHNIQUE: 2D digital imaging was performed of the lumbar spine. Five images were obtained. AP, la teral, right oblique, left oblique and L5-S1 spot views were obtained. COMPARISON: No exams were available for comparison FINDINGS: BONES: No fracture or destructive lesion. Small osteophytes are seen at the L1-L2 and L5-S1 disc spac es. No facet hypertrophy identified. DISKS: There is disc space narrowing at L1-L2 and L5-S1. ALIGNMENT: Lumbar spinal alignment is within normal limits. No spondylolysis or spondylolisthesis. SOFT TISSUE: Normal. IMPRESSION: Mild degenerative changes of the lumbar spine. DATA REPOSITORY: RADIATION DOSE DELIVERED:
== END 2021-01-20 13:50 ==
PROVIDERS: PCP Emergency Medicine; Visit Provider Emergency Medicine
DX: M25.552 Pain in left hip (principal); M54.32 Sciatica, left side; M51.17 Intervertebral disc disorders with radiculopathy, lumbosacral region
CPT/HCPCS: 72110

== ENCOUNTER 2021-01-26 21:06 | Outpatient (REF) | payer MEDICARE, SELFPAY ==
[2021-01-26 21:08] LABS: TSH 2.53 uIU/mL (0.36-3.74)
[2021-01-27 17:44] LABS: PSA, Diagnostic 6.8 ng/mL (0.0-6.5)
== END 2021-01-26 21:07 | disposition home or self-care (01) ==
LOC: LBN 21:06
PROVIDERS: PCP Emergency Medicine; Visit Provider Emergency Medicine
DX: E03.9 Hypothyroidism, unspecified (principal); N40.0 Benign prostatic hyperplasia without lower urinary tract symptoms
CPT/HCPCS: 84153; 84443

== ENCOUNTER 2021-03-05 02:55 | Outpatient (CLI) | payer MEDICARE, SELFPAY ==
[2021-03-05 22:46] LABS: PSA, Diagnostic 7.1 ng/mL (0.0-6.5)
== END 2021-03-05 02:56 | disposition home or self-care (01) ==
LOC: LBO 02:57
PROVIDERS: PCP Emergency Medicine; Visit Provider Emergency Medicine
DX: R97.20 Elevated prostate specific antigen [PSA] (principal)
CPT/HCPCS: 36415; 84153

== ENCOUNTER → 2021-04-12 08:43 | Outpatient (BNVA) | payer MEDICARE, SELFPAY | PROVIDERS: PCP Emergency Medicine; Referring Provider Emergency Medicine; Visit Provider Nurse Practitioner Gerontology | DX: R39.89 Other symptoms and signs involving the genitourinary system (principal); R97.20 Elevated prostate specific antigen [PSA] | CPT/HCPCS: 99214 ==

== ENCOUNTER 2021-04-14 03:27 | Outpatient (CLI) | payer MEDICARE, SELFPAY | END 2021-04-14 03:28 | disposition home or self-care (01) | LOC: LBO 03:27 | PROVIDERS: PCP Emergency Medicine; Visit Provider Nurse Practitioner Gerontology | DX: N40.2 Nodular prostate without lower urinary tract symptoms (principal); R97.20 Elevated prostate specific antigen [PSA] | CPT/HCPCS: 36415; 82565 ==

== ENCOUNTER → 2021-05-07 13:05 | Outpatient (BNVA) | payer MEDICARE, SELFPAY | PROVIDERS: PCP Family Medicine; Referring Provider Emergency Medicine; Visit Provider Physical Therapy Assistant | DX: Z12.11 Encounter for screening for malignant neoplasm of colon (principal); Z80.0 Family history of malignant neoplasm of digestive organs ==

== ENCOUNTER → 2021-05-11 13:00 | Outpatient (BNVA) | payer MEDICARE, SELFPAY | PROVIDERS: PCP Family Medicine; Referring Provider Emergency Medicine; Visit Provider Nurse Practitioner Gerontology | DX: N40.2 Nodular prostate without lower urinary tract symptoms (principal); R97.20 Elevated prostate specific antigen [PSA] | CPT/HCPCS: 99214 ==

== ENCOUNTER 2021-05-12 00:31 | Outpatient (CLI) | payer MEDICARE, SELFPAY ==
--- NOTE | 2021-05-12 14:03 | DI.US_ITS ---
APPROVED REPORT EXAM: Comprehensive 2D, Doppler, and color-flow Echocardiogram Patient Location: Out-Patient Shank Piece Tacker: Renetta Weiner RDCS (AE) Indications: Aortic insufficiency, Aortic Stenosis Other Information Study Quality: Adequate Conclusion Left ventricle is borderline dilated. Wall thickness is normal. Estimated ejection fraction is 60 t o 65%. There are no segmental wall motion abnormalities Normal right ventricular size and systolic function Both atria are moderately dilated The aortic valve is sclerotic, probably trileaflet. There is moderate to severe aortic regurgitation . There is severe aortic stenosis. Peak gradient is 71, mean 42 Thickened mitral leaflets. Mild to moderate mitral regurgitation Normal tricuspid valve with mild regurgitation. Estimated right ventricular systolic pressure is 31 mmHg Mildly dilated ascending aorta measuring 3.82 cm Compared to previous, the degree of aortic stenosis appears to have worsened Wall motion Left Ventricle Left ventricle is mildly dilated. The left ventricular systolic function is normal. The left ventricu lar ejection fraction is within the normal range. There is normal left ventricular wall thickness. Th ere is normal LV segmental wall motion. There is no ventricular septal defect visualized. LVEF is 63% . Right Ventricle The right ventricle is normal size. The right ventricular systolic function is normal. The RVSP is 30 .6 mmHg. Atria Left atrium is moderately dilated. Right atrium is moderately dilated. The interatrial septum is inta ct with no evidence for an atrial septal defect. Aortic Valve Aortic valve is calcified. Number of aortic valve leaflets could not be assessed. Severe aortic steno sis. Peak aortic valve gradient is 71.0mmHg. Highest mean aortic valve gradient is 41.8mmHg. Moderate to severe aortic regurgitation Mitral Valve Mitral valve leaflets are thickened. No evidence of mitral valve stenosis. Mild to moderate mitral re gurgitation. Tricuspid Valve The tricuspid valve is normal in structure. There is no tricuspid valve stenosis. Mild tricuspid regu rgitation. Pulmonic Valve The pulmonary valve is normal in structure. There is no pulmonic valvular stenosis. Trace pulmonic re gurgitation. Great Vessels The aortic root is normal in size. The ascending aorta is mildly dilated. Aortic arch is normal in ca liber. IVC is normal in size and collapses >50% with inspiration. Pericardium There is no pericardial effusion. 2D Dimensions IVSD d PLAX 1.01 cm M: 0.6-1.2 LV Vol A2C d MOD 194.8 mL LVPW d PLAX 1.04 cm M: 0.6 - 1.2 LV Vol A4C d MOD 227.5 mL LVID d PLAX 5.96 cm M: 4.2 - 5.8 LA vol/ BSA A2C s A-L 50.1 mL/m2 LVDs 3.75 cm M: 2.5 - 4.0 LA vol/ BSA A4C s A-L 43.0 mL/m2 Ao Root d 3.46 cm M: 3.1 - 3.7 LA Vol/ BSA Biplane s A-L 47.1 mL/m2 RA Area A4C 18.98 cm2 LA Area A4C s MOD 23.35 cm2 RA Vol/ BSA A4C s A-L 32.0 mL/m2 LA Area A2C s MOD 25.55 cm2 Ao Asc Diam d 3.82 cm M: 2.6 - 3.4 LV EF A4C MOD 62.4 % LV EF Teichholz 65.4 % LV EF A2C MOD 63.2 % LVEF (Rajan's) 63.45 % M: 52 - 72 LV EF Biplane MOD 63.5 % LV Volume 163.91 mL M: 62 - 150 SV 136.37 mL LV Volume Index 86.26 mL/m2 M: 34 - 74 SV Index 71.64 mL/m2 LV Vol Biplane MOD 214.9 mL FS 36.45 % M-Mode TAPSE 2.97 cm (M/F) >1.7 LV Diastology MV E' medial 0.086 (>0.07 m/s) E/A Ratio 0.9 LV E/e MED 7.30 (<14) MV E Vmax 0.63 (0.4-1.3 m/s) MV E' lateral 0.109 (>0.1 m/s) MV A Vmax 0.70 (0.4-1.3 m/s) LV E/e LAT 5.75 (<14) MV E/A Ratio 0.89 MV E/E' medial 7.32 MV E/E' lateral 5.79 Aortic Valve LVOT Area 4.01 cm2 AoV Area Vmax 1.59 cm2 LVOT Vmax 1.67 m/s AoV Area/ BSA (Vmax) 0.83 cm2/m2 LVOT Mean Chris. 1.18 m/s MARY Mean Chris. 1.54 cm2 LVOT Peak Grad 11.1 mmHg MARY Mean Chris. Index 0.81 cm2/m2 LVOT Mean Grad 6.4 mmHg AR DT 1828 msec LVOT VTI 0.470 m AR PHT 530 msec LVOT Diam s 2.25 cm AoV Vmax 4.21 m/s Velocity Ratio 0.39 AoV Mean Chris. 3.09 m/s AoV Peak Grad 71.0 mmHg LVOT SV 188.65 mL AoV Mean Grad 41.8 mmHg AoV VTI 1.048 m AoV Area VTI 1.80 cm2 AoV Area/ BSA (VTI) 0.95 cm/m2 Mitral Valve MV DT 137 (160-240 msec) MV PHT 40 msec MV Area PHT 5.55 cm2 Pulmonary Valve PV Vmax 1.27 (0.5-1.5 m/s) RVOT Peak Gr. 2.32 mmHg PV Peak Grad 6.4 mmHg RVOT Mean Gr. 1.25 mmHg PV Mean Grad 3.3 mmHg RVOT VTI 0.176 m PV VTI 0.263 m RVOT Vmax 0.76 m/s Tricuspid Valve TR Peak Grad 27.6 mmHg TR Vmax 2.63 m/s RA Pressure 3.00 mmHg RVSP (TR) 30.6 mmHg
== END 2021-05-12 00:51 ==
PROVIDERS: PCP Family Medicine; Visit Provider Internal Medicine Cardiovascular Disease
DX: Z98.890 Other specified postprocedural states (principal); I35.0 Nonrheumatic aortic (valve) stenosis
CPT/HCPCS: 93306

== ENCOUNTER → 2021-05-24 10:52 | Outpatient (BNVA) | payer MEDICARE, SELFPAY | PROVIDERS: PCP Family Medicine; Visit Provider Internal Medicine Cardiovascular Disease | DX: I35.1 Nonrheumatic aortic (valve) insufficiency (principal); I35.0 Nonrheumatic aortic (valve) stenosis; I25.10 Atherosclerotic heart disease of native coronary artery without angina pectoris; R97.20 Elevated prostate specific antigen [PSA] | CPT/HCPCS: 99214 ==

== ENCOUNTER 2021-06-11 02:05 | Outpatient (CLI) | payer MEDICARE, SELFPAY ==
--- NOTE | 2021-06-11 07:00 | DI.US_ITS ---
Exam(s) US PROSTATE BIOPSY EXAM: US PROSTATE BIOPSY CLINICAL HISTORY: prostate nodule; pelvic MRI confirmed area,n40.2 TECHNIQUE: Ultrasound performed using standard protocol. COMPARISON: None FINDINGS: Ultrasound guidance was provided during prostate biopsy performed by the urologist. Radiologist was not present for this procedure. IMPRESSION: DATA REPOSITORY:
--- NOTE | 2021-06-11 11:00 | PROST_PTH ---
PATIENT: Jose Armando Chand LOC: [facility] U#:[id number] AGE/SX: 71/M ROOM: RE06/11/[address]: Julito Masters MD : [id number] BED: DIS: 06/11/2021 SPEC #: [id number] RECD: 06/11/21 12:48 [id number] CECIL: 06/11/21 11:[address]: Julito Masters DEPT: Surgical Specimen RECD BY: Leonor Irby ENTERED: 06/11/21 12:50 SP TYPE: PROST OTHR DR: Lucien Robledo Tissues: 1 - PROSTATE NEEDLE BIOPSY 2 - PROSTATE NEEDLE BIOPSY 3 - PROSTATE NEEDLE BIOPSY 4 - PROSTATE NEEDLE BIOPSY 5 - PROSTATE NEEDLE BIOPSY 6 - PROSTATE NEEDLE BIOPSY 7 - PROSTATE NEEDLE BIOPSY 8 - PROSTATE NEEDLE BIOPSY 9 - PROSTATE NEEDLE BIOPSY 10 - PROSTATE NEEDLE BIOPSY 11 - PROSTATE NEEDLE BIOPSY 12 - PROSTATE NEEDLE BIOPSY Procedures: GROSS AND MICRO LEVEL 4 Comments: [id number]
--- NOTE | 2021-06-11 12:38 | W.PM.OP ---
Date of service: 06/11/21 Time of Service: 11:15 Operative Note Operative Note DATE OF PROCEDURE: 06/11/21 PRE-OP DIAGNOSIS: Elevated PSA Abnormal prostate MRI PROCEDURE: Transrectal ultra sound guided biopsy of the prostate SURGEON: Julito Masters ANESTHESIA TYPE: Local By Surgeon Refer to Anesthesia Record ESTIMATED BLOOD LOSS: 10 PATHOLOGY: other (12 laterally directed biopsies taken from prostate) COMPLICATIONS: None Patient was transported to: no change Patient's condition: stable Implants: none Indications: This is a 71-year-old gentleman who was found to have a slightly elevated PSA of 7.1 ng/mL. His digital rectal exam was unremarkable, but his multiparameter prostate MRI showed a lesion on the right side of the prostate that was the likely indicative of a clinically significant prostate cancer. He presents for ultrasound-guided biopsy of the prostate. Findings: Prostate volume 21 cc Procedure Description: The patient was given a chemical and antibiotic bowel prep. He was brought to the radiology suite on 06/11/2021. He was placed in the left lateral position. Transrectal imaging of the prostate was performed using a variable megahertz transducer. The prostate was imaged in transverse and longitudinal planes. There were a few calcifications in the transition zone. There was a very small hypoechoic area in the right sided peripheral zone in the mid prostate area. The prostatic volume was calculated at 21 cc. A periprostatic nerve block was performed using 1% lidocaine. A total of 12 laterally directed biopsies were then taken. Each of the biopsies was labeled and sent to pathology for permanent section. The patient tolerated this procedure with no complications.
== END 2021-06-11 02:25 ==
PROVIDERS: PCP Family Medicine; Visit Provider Urology
DX: C61 Malignant neoplasm of prostate (principal)
CPT/HCPCS: 55700; 76942; 88305

== ENCOUNTER → 2021-06-25 12:59 | Outpatient (BNVA) | payer MEDICARE, SELFPAY | PROVIDERS: PCP Family Medicine; Referring Provider Family Medicine; Visit Provider Urology | DX: C61 Malignant neoplasm of prostate (principal) | CPT/HCPCS: 99215 ==

== ENCOUNTER 2021-07-05 02:00 | Outpatient (CLI) | payer MEDICARE, SELFPAY ==
--- NOTE | 2021-07-05 07:30 | DI.NM_ITS ---
Exam(s) NM BONE SCAN WHOLE BODY GRP EXAM: NM BONE SCAN WHOLE BODY GRP CLINICAL HISTORY: baseline - new dx prostate cancer,c61. TECHNIQUE: Whole body nuclear bone scan was performed with IV injection of 26 millicuries technetium 99 MDP. Delayed images of the entire skeleton at 3 hours were performed. COMPARISON: No exams were available for comparison FINDINGS: There is no abnormal skeletal uptake to suggest metastatic disease. No abnormal uptake in the spinal column nor in the bones of the pelvis. Mild increased focal uptake is seen in the region of the right ankle which is probably degenerative. IMPRESSION: There is no evidence of osseous metastatic disease DATA REPOSITORY:
== END 2021-07-05 02:20 ==
PROVIDERS: PCP Family Medicine; Visit Provider Urology
DX: C61 Malignant neoplasm of prostate (principal); Z12.89 Encounter for screening for malignant neoplasm of other sites
CPT/HCPCS: 78306

== ENCOUNTER → 2021-07-13 15:01 | Outpatient (BNVA) | payer MEDICARE, SELFPAY | PROVIDERS: PCP Family Medicine; Referring Provider Emergency Medicine; Visit Provider Urology | DX: C61 Malignant neoplasm of prostate (principal) | CPT/HCPCS: 99215 ==

== ENCOUNTER 2021-08-20 02:20 | Outpatient (CLI) | payer MEDICARE, SELFPAY ==
[2021-08-20 12:27] LABS: Calculated LDL 84 mg/dL (<100); Cholesterol 159 mg/dL (<200); HDL Cholesterol 66 mg/dL (40-60); Triglyceride 47 mg/dL (<150)
== END 2021-08-20 02:21 | disposition home or self-care (01) ==
LOC: LBO 02:20
PROVIDERS: PCP Family Medicine; Visit Provider Family Medicine
DX: E78.5 Hyperlipidemia, unspecified (principal)
CPT/HCPCS: 36415; 80061

== ENCOUNTER 2021-10-13 18:44 | Outpatient (REF) | payer MEDICARE, SELFPAY | END 2021-10-13 18:45 | disposition home or self-care (01) | LOC: LBN 18:44 | PROVIDERS: PCP Family Medicine; Visit Provider Urology | DX: R39.9 Unspecified symptoms and signs involving the genitourinary system (principal) | CPT/HCPCS: 87086 ==

== ENCOUNTER 2022-02-03 03:07 | Outpatient (CLI) | payer MEDICARE, SELFPAY ==
[2022-02-03 14:56] LABS: Anion Gap 5.3 mmol/L (3-11); BUN 25 mg/dL (7-18); CO2 30.7 mmol/L (21.0-32.0); CREATININE 1.1 mg/dL (0.70-1.30); Calcium 9.4 mg/dL (8.5-10.1); Chloride 104 mmol/L (98-107); Estimated GFR 71.77 (mL/min/1.73m2); Glucose 87 mg/dL (74-106); Potassium 4.1 mmol/L (3.5-5.1); Sodium 140 mmol/L (136-145); TSH (W/Ref FT4) 1.95 uIU/mL (0.36-3.74)
[2022-02-03 15:38] LABS: Calculated LDL 85 mg/dL (<100); Cholesterol 167 mg/dL (<200); HDL Cholesterol 63 mg/dL (40-60); Triglyceride 95 mg/dL (<150)
[2022-02-07 14:28] LABS: PSA, Ultrasensitive <0.01 ng/mL (<= 6.5)
== END 2022-02-03 03:08 | disposition home or self-care (01) ==
PROVIDERS: PCP Family Medicine; Visit Provider Urology
DX: C61 Malignant neoplasm of prostate
CPT/HCPCS: 36415; 80048; 80061; 84153; 84443

== ENCOUNTER 2022-11-03 04:16 | Outpatient (CLI) | payer MEDICARE, BC, SELFPAY ==
[2022-11-05 12:04] LABS: PSA, Ultrasensitive <0.01 ng/mL (<= 6.5)
== END 2022-11-03 04:17 | disposition home or self-care (01) ==
PROVIDERS: PCP Family Medicine; Visit Provider Urology
DX: C61 Malignant neoplasm of prostate (principal)
CPT/HCPCS: 36415; 84153

== ENCOUNTER 2023-02-14 01:31 | Outpatient (CLI) | payer MEDICARE, BC, SELFPAY ==
[2023-02-14 19:04] LABS: Calculated LDL 68 mg/dL (<100); Cholesterol 151 mg/dL (<200); HDL Cholesterol 61 mg/dL (40-60); TSH (W/Ref FT4) 2.87 uIU/mL (0.36-3.74); Triglyceride 114 mg/dL (<150)
[2023-02-18 13:55] LABS: PSA, Ultrasensitive <0.01 ng/mL (<= 6.5)
== END 2023-02-14 01:32 | disposition home or self-care (01) ==
PROVIDERS: PCP Family Medicine; Visit Provider Urology
DX: E03.9 Hypothyroidism, unspecified (principal); E78.5 Hyperlipidemia, unspecified; Z13.6 Encounter for screening for cardiovascular disorders; C61 Malignant neoplasm of prostate
CPT/HCPCS: 36415; 80061; 84153; 84443

== ENCOUNTER → 2023-02-28 09:36 | Outpatient (BNVA) | payer MEDICARE, BC, SELFPAY | PROVIDERS: PCP Family Medicine; Referring Provider Family Medicine; Visit Provider Podiatrist | DX: B07.0 Plantar wart (principal); M79.671 Pain in right foot | CPT/HCPCS: 17110; 99213 ==

== ENCOUNTER → 2023-03-30 13:13 | Outpatient (BNVA) | payer MEDICARE, BC, SELFPAY | PROVIDERS: PCP Family Medicine; Referring Provider Family Medicine; Visit Provider Podiatrist | DX: B07.0 Plantar wart (principal); Q82.8 Other specified congenital malformations of skin | CPT/HCPCS: 99213 ==

== ENCOUNTER 2023-07-11 04:33 | Outpatient (CLI) | payer MEDICARE, BC, SELFPAY ==
[2023-07-12 18:34] LABS: PSA, Ultrasensitive <0.01 ng/mL (<= 6.5)
== END 2023-07-11 04:34 | disposition home or self-care (01) ==
PROVIDERS: PCP Family Medicine; Visit Provider Urology
DX: C61 Malignant neoplasm of prostate (principal)
CPT/HCPCS: 36415; 84153

== ENCOUNTER 2024-06-11 03:07 | Outpatient (CLI) | payer MEDICARE, SELFPAY ==
[2024-06-11 11:18] LABS: TSH (W/Ref FT4) 3.06 uIU/mL (0.36-3.74)
[2024-06-11 20:35] LABS: Hepatitis C Ab w Rflx HCV PCR Negative (Negative)
[2024-06-12 18:33] LABS: PSA, Ultrasensitive <0.01 ng/mL (<= 6.5)
== END 2024-06-11 03:08 | disposition home or self-care (01) ==
PROVIDERS: PCP Family Medicine; Visit Provider Urology
DX: E03.9 Hypothyroidism, unspecified (principal); Z11.59 Encounter for screening for other viral diseases; C61 Malignant neoplasm of prostate
CPT/HCPCS: 36415; 84153; 86803; 84443

== ENCOUNTER 2024-11-08 15:43 | Outpatient (CLI) | payer MEDICARE, OTHER, SELFPAY ==
--- NOTE | 2024-11-08 15:30 | RT.EKG_ITS ---
APPROVED REPORT Exam: Resting ECG Reason for Exam: lightheadedness Patient Location: O HR:58 bpm ECG Measurements Heart Rate 58 AXIS MT [id number] P [id number] QRSd 107 QRS 55 QT 455 T -80 QTc 447 Conclusion Atrial fibrillation Left ventricular hypertrophy with repolarization abnormalities
== END 2024-11-08 15:44 | disposition home or self-care (01) ==
LOC: DI.CM 15:44
PROVIDERS: PCP Family Medicine; Visit Provider Physician Assistant
DX: R42 Dizziness and giddiness (principal); I48.19 Other persistent atrial fibrillation; I51.7 Cardiomegaly
CPT/HCPCS: 93010

== ENCOUNTER 2024-11-08 16:31 | Emergency (ER) | payer MEDICARE, OTHER, SELFPAY ==
[2024-11-08] VITALS (45 sets, daily range): BP systolic 118–188; BP diastolic 29–111; PULSE 37–62; RESP 11–30; TEMP 36.1; O2SAT 93–98
--- NOTE | 2024-11-08 16:30 | RT.EKG_ITS ---
APPROVED REPORT Exam: Resting ECG Reason for Exam: chest pain Patient Location: E HR:43 bpm ECG Measurements Heart Rate 43 AXIS WY [id number] P [id number] QRSd 108 QRS 51 QT 450 T -73 QTc 382 Conclusion Atrial fibrillation...V-rate 32- 48, irreg A-activity Left ventricular hypertrophy...multiple voltage criteria Nonspecific T abnormalities, inferior leads...T <-0.10mV, II III aVF indeterminate rythym no ST segment or T wave abnormalitites to suggest occlusive ND
--- NOTE | 2024-11-08 16:45 | DI.RAD_ITS ---
Exam(s) XR CHEST 2V PA LATERAL EXAM: XR CHEST 2V PA LATERAL CLINICAL HISTORY: presyncope. TECHNIQUE: 2D digital imaging was performed. COMPARISON: No exams were available for comparison FINDINGS: 2 views: There is cardiomegaly. The mediastinum is not widened. Lung is clear. There is a small-unilateral right-sided pleural effusion. No evidence of airspace pulmonary edema. IMPRESSION: Unilateral small right-sided pleural effusion. DATA REPOSITORY: RADIATION DOSE DELIVERED:
[2024-11-08 16:53] LABS: Abs Immature Grans 0.01 10^3/uL (0.0-0.06); HCT 35.7 % (40.0-50.0); HGB 12.3 g/dL (13.5-17.5); Immature Grans % 0.2 %; MCH 31.5 pg (27.0-33.0); MCHC 34.5 % (32.0-36.0); MCV 91 fL (80-95); MPV 9.4 fL (8.0-11.0); Platelet Count 154 10^3/uL (130-400); RBC 3.91 10^6/uL (4.36-5.78); RDW 12.6 % (11.8-14.1); RDW-SD 41.0 fL; WBC 5.82 10^3/uL (4.4-10.8)
[2024-11-08 17:08] LABS: INR 1.0 (0.9-1.1); PTT Activated 25.0 sec (20.6-30.2); Prothrombin Time 9.9 sec (9.1-11.1)
[2024-11-08 17:19] LABS: ALT 58 U/L (16-63); AST 37 U/L (15-37); Albumin 3.6 g/dL (3.4-5.0); Alkaline Phosphatase 86 U/L (46-116); Anion Gap 4.8 mmol/L (3-11); BUN 22 mg/dL (7-18); Bilirubin, Total 0.6 mg/dL (0.2-1.0); CO2 28.2 mmol/L (21.0-32.0); Calcium 8.6 mg/dL (8.5-10.1); Chloride 108 mmol/L (98-107); Estimated GFR 70.44 (mL/min/1.73m2); Glucose 95 mg/dL (74-106); Magnesium 1.9 mg/dL (1.8-2.4); Potassium 4.0 mmol/L (3.5-5.1); Sodium 141 mmol/L (136-145); TSH 4.19 uIU/mL (0.36-3.74); Total Protein 6.5 g/dL (6.4-8.2); Troponin I 36 ng/L (<or=76)
--- NOTE | 2024-11-08 17:21 | W.ED.GENAD ---
Discharge Plan Disposition Patient Disposition: Transfer-Acute Inpatient Care Specific Acute Inpt Facility: [facility] Condition: Serious Discharge Details Clinical Impression: Bradycardia, A-fib, Pre-syncope, Aortic stenosis Primary Care Provider: Steffi Arce ED Provider: Autumn Silverio Home Meds and New Rx's Prescriptions: No Action aspirin [Ludy Low Dose Aspirin] 81 mg tablet,delayed release (DR/EC) 81 mg PO HS rosuvastatin 20 mg tablet 20 mg PO HS Qty: 90 3RF levothyroxine 75 mcg tablet 75 mcg PO DAILY Qty: 90 3RF HPI General Mode of arrival: ambulatory. Date/Time Provider Initiated Documentation: 11/08/24 16:45. Limitations to Documentation: no limitations. Information obtained by: patient. HPI Narrative: 74yo M with hx CAD, hypothyroid, aortic stenosis and aortic regurgitation, presenting for lightheadedness. Follows with cardiology at [facility]. He has had episodes of brief lightheadedness (several minutes each) starting this morning. Has had similar events in the past but usually with exertion and not repeatedly throughout the day. Today these have occurred at rest. Reports that he felt normally yesterday and yesterday evening, 'maybe a little more tired than usual'. Denies any lightheadedness yesterday. He denies any chest pain at any point, or any shortness of breath. He did not lose consciousness at any point. He is otherwise in his usual state of health with no fevers, chills, rash, nausea, vomtiing, abdominal pain, dysuria, diarrhea, dark or blood stool, or other concerns. Related Data Home Medications ?Medication ?Instructions ?Recorded ?Confirmed aspirin 81 mg tablet,delayed 81 mg PO HS 01/07/19 11/08/24 release (Ludy Low Dose Aspirin) rosuvastatin 20 mg tablet 20 mg PO HS #90 tabs 12/12/23 11/08/24 levothyroxine 75 mcg tablet 75 mcg PO DAILY #90 tabs 06/17/24 11/08/24 Previous Rx's ?Medication ?Instructions ?Recorded rosuvastatin 20 mg tablet 20 mg PO HS #90 tabs 12/12/23 levothyroxine 75 mcg tablet 75 mcg PO DAILY #90 tabs 06/17/24 Allergies Allergy/AdvReac Type Severity Reaction Status Date / Time No Known Allergies Allergy Verified 11/08/24 16:46 General Stated Complaint: Dizzy/Sync JOSE: 2 Review of Systems Narrative: see HPI Exam Narrative Exam Narrative: General: Alert, well appearing, well nourished, in no acute distress. Head: Normocephalic, atraumatic Neck: Trachea midline, ?Neck supple. ENT: ?MMM.? No oropharygeal lesions or exudate. Cardiac: ?Irregular, loud systolic murmur. Resp: No respiratory distress. CTAB. Abd: ?Soft, non-distended, nontender : ?No suprapubic tenderness. Extremities: ?No deformities.? No peripheral edema. Neurologic: GCS 15. ? Moves all extremities freely against gravity Course Vital Signs Vital signs: Vital Signs Temperature 36.1 C L 11/08/24 16:34 Pulse 48 L 11/08/24 16:34 Respiratory Rate 14 11/08/24 16:34 Blood Pressure 165/50 H 11/08/24 16:34 Pulse Oximetry 98 11/08/24 16:34 Temperature 36.1 C L 11/08/24 16:34 Temperature Source Tympanic 11/08/24 16:34 Pulse 48 L 11/08/24 16:34 Respiratory Rate 14 11/08/24 16:34 Blood Pressure 165/50 H 11/08/24 16:34 Blood Pressure Position Sitting 11/08/24 16:34 Pulse Oximetry 98 11/08/24 16:34 Oxygen Delivery Method Room Air 11/08/24 16:34 Oxygen Flow Rate 0 11/08/24 16:34 Pain Level 0 11/08/24 16:34 Lab/Test Results Lab/Test Results: Laboratory Tests Range/Units 11/08/24 16:46 WBC (4.4-10.8) 10^3/uL 5.82 RBC (4.36-5.78) 10^6/uL 3.91 L Hgb (13.5-17.5) g/dL 12.3 L Hct (40.0-50.0) % 35.7 L MCV (80-95) fL 91 MCH (27.0-33.0) pg 31.5 MCHC (32.0-36.0) % 34.5 RDW (11.8-14.1) % 12.6 Plt Count (130-400) 10^3/uL 154 MPV (8.0-11.0) fL 9.4 Immature Gran % % 0.2 Neutrophils % % 68.9 Lymphocytes % % 18.2 Monocytes % % 9.1 Eosinophils % % 2.9 Basophils % % 0.7 Nucleated RBC % (0.0-0.3) % 0.0 Absolute Neutrophils (1.2-6.7) 10^3/uL 4.01 Absolute Lymphocytes (1.2-3.4) 10^3/uL 1.06 L Absolute Monocytes (0.1-0.8) 10^3/uL 0.53 Absolute Eosinophils (0.0-0.7) 10^3/uL 0.17 Absolute Basophils (0.0-0.2) 10^3/uL 0.04 PT (9.1-11.1) sec 9.9 INR (0.9-1.1) 1.0 APTT (20.6-30.2) sec 25.0 Sodium (136-145) mmol/L 141 Potassium (3.5-5.1) mmol/L 4.0 Chloride (98-107) mmol/L 108 H Carbon Dioxide (21.0-32.0) mmol/L 28.2 Anion Gap (3-11) mmol/L 4.8 BUN (7-18) mg/dL 22 H Creatinine (0.70-1.30) mg/dL 1.1 Est GFR (CKD-EPI 2020) (mL/min/1.73m2) 70.44 Glucose (74-106) mg/dL 95 Calcium (8.5-10.1) mg/dL 8.6 Magnesium (1.8-2.4) mg/dL 1.9 Total Bilirubin (0.2-1.0) mg/dL 0.6 AST (15-37) U/L 37 ALT (16-63) U/L 58 Alkaline Phosphatase (46-116) U/L 86 Troponin I (<or=76) ng/L 36 Total Protein (6.4-8.2) g/dL 6.5 Albumin (3.4-5.0) g/dL 3.6 TSH (0.36-3.74) uIU/mL 4.19 H Medical Decision Making 74yo M with hx CAD, hypothyroid, aortic stenosis and aortic regurgitation, follows with cardiology at [facility], presenting for lightheadedness. Today frequent brief episodes of brief lightheadedness; no chest pain, shortness of breath, or syncope. Otherwise in his usual state of health. Bradycardiac to 40's-50's on arrival, moderately hypertensive. Well appearing. Concern for symptomatic aortic stenosis, ACS, symptomatic bradycardia, cardiac arhythmia. [facility] cardiology note reviewed, pt with gradient 70 harley 1.0 moderate aortic insufficiency. LVEF 62%, exercise stress test to 17 mets. -EKG indeterminate rhythm; periods of regularity and irregularity; no ST segment or T wave changes to suggest occlusive MD. Prior EKG in 2020 shows mobitz 2. -CXR independently reviewed; no focal pneumonia or pneumothorax on my view, radiology with small right pleural effusion. -Labs reviewed as below CBC with mild anemia at 12.3 (unknown chronicity, pt denies any recent s/s bleeding), CMP with no actionable abnormalities, Mg normal, TSH mildly elevated with normal T4, coags normal, BNP elevated at ~4000, troponin 36 with one hour repeat 37 (would not further persue ACS/trend troponin). Lactate normal. -Orthostatic vital signs normal. -Repeat EKG unchanged. Discussed with [facility] cardiology Dr. Saleh; EKGs and tele reviewed, patient thought to be in slow afib. Accepted to [facility] under Dr. Hankins for further workup and management. Pending transfer via EMS. Oncoming physican aware of patient; a follow on note will only be written if there is a change in patient status or condition. Lab Data Lab results reviewed: Yes I reviewed the patient's lab results. Labs: Laboratory Tests Range/Units 11/08/24 11/08/24 11/08/24 16:46 17:39 18:10 WBC (4.4-10.8) 10^3/uL 5.82 RBC (4.36-5.78) 10^6/uL 3.91 L Hgb (13.5-17.5) g/dL 12.3 L Hct (40.0-50.0) % 35.7 L MCV (80-95) fL 91 MCH (27.0-33.0) pg 31.5 MCHC (32.0-36.0) % 34.5 RDW (11.8-14.1) % 12.6 Plt Count (130-400) 10^3/uL 154 MPV (8.0-11.0) fL 9.4 Immature Gran % % 0.2 Neutrophils % % 68.9 Lymphocytes % % 18.2 Monocytes % % 9.1 Eosinophils % % 2.9 Basophils % % 0.7 Nucleated RBC % (0.0-0.3) % 0.0 Absolute Neutrophils (1.2-6.7) 10^3/uL 4.01 Absolute Lymphocytes (1.2-3.4) 10^3/uL 1.06 L Absolute Monocytes (0.1-0.8) 10^3/uL 0.53 Absolute Eosinophils (0.0-0.7) 10^3/uL 0.17 Absolute Basophils (0.0-0.2) 10^3/uL 0.04 PT (9.1-11.1) sec 9.9 INR (0.9-1.1) 1.0 APTT (20.6-30.2) sec 25.0 VBG Lactate (<or=2.0) mmol/L Sodium (136-145) mmol/L 141 Potassium (3.5-5.1) mmol/L 4.0 Chloride (98-107) mmol/L 108 H Carbon Dioxide (21.0-32.0) mmol/L 28.2 Anion Gap (3-11) mmol/L 4.8 BUN (7-18) mg/dL 22 H Creatinine (0.70-1.30) mg/dL 1.1 Est GFR (CKD-EPI 2020) (mL/min/1.73m2) 70.44 Glucose (74-106) mg/dL 95 Calcium (8.5-10.1) mg/dL 8.6 Magnesium (1.8-2.4) mg/dL 1.9 Total Bilirubin (0.2-1.0) mg/dL 0.6 AST (15-37) U/L 37 ALT (16-63) U/L 58 Alkaline Phosphatase (46-116) U/L 86 Troponin I (<or=76) ng/L 36 37 NT-Pro-B Natriuret Pep (<300) pg/mL 4079 H Total Protein (6.4-8.2) g/dL 6.5 Albumin (3.4-5.0) g/dL 3.6 TSH (0.36-3.74) uIU/mL 4.19 H Free T4 (0.76-1.46) ng/dL 0.96 Add-On Test Request DONE DONE Range/Units 11/08/24 20:44 WBC (4.4-10.8) 10^3/uL RBC (4.36-5.78) 10^6/uL Hgb (13.5-17.5) g/dL Hct (40.0-50.0) % MCV (80-95) fL MCH (27.0-33.0) pg MCHC (32.0-36.0) % RDW (11.8-14.1) % Plt Count (130-400) 10^3/uL MPV (8.0-11.0) fL Immature Gran % % Neutrophils % % Lymphocytes % % Monocytes % % Eosinophils % % Basophils % % Nucleated RBC % (0.0-0.3) % Absolute Neutrophils (1.2-6.7) 10^3/uL Absolute Lymphocytes (1.2-3.4) 10^3/uL Absolute Monocytes (0.1-0.8) 10^3/uL Absolute Eosinophils (0.0-0.7) 10^3/uL Absolute Basophils (0.0-0.2) 10^3/uL PT (9.1-11.1) sec INR (0.9-1.1) APTT (20.6-30.2) sec VBG Lactate (<or=2.0) mmol/L 0.9 Sodium (136-145) mmol/L Potassium (3.5-5.1) mmol/L Chloride (98-107) mmol/L Carbon Dioxide (21.0-32.0) mmol/L Anion Gap (3-11) mmol/L BUN (7-18) mg/dL Creatinine (0.70-1.30) mg/dL Est GFR (CKD-EPI 2020) (mL/min/1.73m2) Glucose (74-106) mg/dL Calcium (8.5-10.1) mg/dL Magnesium (1.8-2.4) mg/dL Total Bilirubin (0.2-1.0) mg/dL AST (15-37) U/L ALT (16-63) U/L Alkaline Phosphatase (46-116) U/L Troponin I (<or=76) ng/L NT-Pro-B Natriuret Pep (<300) pg/mL Total Protein (6.4-8.2) g/dL Albumin (3.4-5.0) g/dL TSH (0.36-3.74) uIU/mL Free T4 (0.76-1.46) ng/dL Add-On Test Request Critical Care Time Critical Care Time Critical Care Time: Yes Total Critical Care Time: 34 Attestation: Due to a high probability of clinically significant, life threatening deterioration, the patient required my highest level of preparedness to intervene emergently and I personally spent this critical care time directly and personally managing the patient. This critical care time included obtaining a history; examining the patient; pulse oximetry; ordering and review of studies; arranging urgent treatment with development of a management plan; evaluation of patient's response to treatment; frequent reassessment; and, discussions with other providers. This critical care time was performed to assess and manage the high probability of imminent, life-threatening deterioration that could result in multi-organ failure. It was exclusive of separately billable procedures and treating other patients and teaching time. 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 Tubular adenoma (Chronic) 2015 in [facility], due for colonoscopy in 5 years; 08/2021 normal Sensorineural hearing loss, bilateral (Chronic) Aortic regurgitation (Chronic) Aortic stenosis (Chronic) 2020-echo - ef 60 %, moderate aortic stenosis and aortic regurgitation, followed by cardiology at [facility] 05/2021 interval worsening of aortic stenosis followed by cardiology-cardiothoracic surgery at [facility] Coronary artery disease involving [place] heart without angina pectoris (Chronic ~05/10/17) History of anomalous right coronary artery identified at [place], followed by cardiology at [facility]-not requiring treatment Hypothyroidism (Chronic ~06/2010) Hyperlipidemia (Chronic ~06/2010) Medical History Prostate cancer 06/2021, localized-followed by [facility] Dislocated shoulder Surgical History S/P bilateral inguinal hernia repair (11/2023) [facility] S/P prostatectomy (2021) robotic History of tonsillectomy and adenoidectomy Hx of shoulder surgery 1979, right dislocated Hx of cataract surgery Family History Mother , age 79 Hyperlipidemia Parkinson disease Father , age 80 Colon cancer Rectal cancer Sister Depression Hyperlipidemia Brother Hyperlipidemia Son No problems noted. Daughter No problems noted. Maternal Grandfather , age 65 Cancer Paternal Grandfather , age 95 No problems noted. Maternal Grandmother , age 92 No problems noted. Paternal Grandmother , age 95 No problems noted. Social History Smoking/Tobacco Use Status: Never Second Hand Exposure: Yes Smoking risk assessment performed?: Yes Alcohol Intake: current Alcohol Intake frequency: a few times a month Alcohol type: wine Drug use: Never Substance use type: does not use Counseling given: No Counseling provided: none Adopted: No Caregiver/Support person: No Foster care: No Household members: spouse and children Housing: house Number of Children: 5 number of grandchildren: 0 Communication Needs: None Education Level: college Details: post grad Do you need help understanding health information?: Never current occupation: financial investment manager Pets and animals: Yes Pets and animals: dog(s) Sexually active: No Do you think of yourself as: straight/heterosexual Current gender identity: male What is your relationship status?: How often do you talk on the phone with friends or family?: three or more times per week How often do you get together with friends or relatives?: three or more times per week How often do you attend moravian or jain services?: 1-3 times per year Do you belong to any clubs or organized social groups?: yes Panel score (0-1 are the most socially isolated patients): 3 What type of physical activity do you participate in: walking, bicycling and weight lifting Duration: > 90 minutes/day Frequency: daily Mar/Mormonism: Oriental Orthodox Special mar needs: No Agree to transfusion: Yes Seatbelt use: always Helmet use: Yes Helmet use: always Drive intox or ride w/intox milk pickup driver: No Working smoke detector in home: Yes Carbon monox detector in home: Yes Firearms in home: No Do you feel safe at home: Yes Do you feel safe in your relationship?: Yes Victim of physical abuse: No Victim of emotional abuse: No Victim of sexual abuse: No Would you like helpful sources: No
[2024-11-08 17:46] LABS: Lab Add On Test DONE
[2024-11-08 18:04] LABS: NT-proBNP 4079 pg/mL (<300)
[2024-11-08 18:13] LABS: Lab Add On Test DONE
[2024-11-08 18:40] LABS: Troponin I 37 ng/L (<or=76)
--- NOTE | 2024-11-08 19:30 | RT.EKG_ITS ---
APPROVED REPORT Exam: Resting ECG Reason for Exam: presyncope Patient Location: E HR:56 bpm ECG Measurements Heart Rate 56 AXIS RI [id number] P [id number] QRSd 105 QRS 67 QT 462 T 258 QTc 445 Conclusion Atrial fibrillation...? atrial activity Left ventricular hypertrophy...multiple voltage criteria Nonspecific T abnormalities, inferior leads...T <-0.10mV, II III aVF no ST segment or T wave abnormalities to suggest occlusive HI
[2024-11-09] VITALS (38 sets, daily range): BP systolic 97–170; BP diastolic 14–65; PULSE 42–67; RESP 15–26; O2SAT 90–96
--- NOTE | 2024-11-14 08:35 | NUR.NOTE ---
Access chart to determine the RN taking care of patient for transfer forms. Nursing Note:
== END 2024-11-09 04:08 | disposition short-term general hospital (02) ==
PROVIDERS: Emergency Provider Student in an Organized Health Care Education/Training Program; PCP Family Medicine
DX: R00.1 Bradycardia, unspecified (principal); I48.91 Unspecified atrial fibrillation; R55 Syncope and collapse; I35.0 Nonrheumatic aortic (valve) stenosis
CPT/HCPCS: 36415; 99291; 80053; 93005; 71046; 83605; 83735; 83880; 84439; 84443; 84484; 85025; 85610; 85730; 93010

== ENCOUNTER 2024-12-30 04:25 | Outpatient (CLI) | payer MEDICARE, OTHER, SELFPAY ==
[2024-12-30 15:32] LABS: Abs Immature Grans 0.01 10^3/uL (0.0-0.06); HCT 35.2 % (40.0-50.0); HGB 11.8 g/dL (13.5-17.5); Immature Grans % 0.2 %; MCH 30.5 pg (27.0-33.0); MCHC 33.5 % (32.0-36.0); MCV 91 fL (80-95); MPV 9.2 fL (8.0-11.0); Platelet Count 168 10^3/uL (130-400); RBC 3.87 10^6/uL (4.36-5.78); RDW 12.6 % (11.8-14.1); RDW-SD 41.5 fL; WBC 5.07 10^3/uL (4.4-10.8)
[2024-12-30 16:34] LABS: NT-proBNP 3259 pg/mL (<300)
== END 2024-12-30 04:26 | disposition home or self-care (01) ==
PROVIDERS: PCP Family Medicine; Visit Provider Internal Medicine Cardiovascular Disease
DX: R06.09 Other forms of dyspnea (principal)
CPT/HCPCS: 36415; 83880; 85025

== ENCOUNTER 2025-02-07 10:54 | Outpatient (RCR) | payer MEDICARE, OTHER, SELFPAY ==
--- NOTE | 2025-02-07 11:00 | RT.EKG_ITS ---
APPROVED REPORT Exam: Resting ECG Reason for Exam: CR Intake Appointment - Baseline EKG Patient Location: O HR:42 bpm ECG Measurements Heart Rate 42 AXIS [place] 78 P 0 QRSd 98 QRS 78 QT 459 T -76 QTc 384 Conclusion Atrial fibrillation Abnormal R-wave progression, late transition...QRS area<0 in V5/V6 Left ventricular hypertrophy with repolarization abnormalities
== END 2025-03-02 23:59 | disposition home or self-care (01) ==
LOC: CR 10:54
PROVIDERS: PCP Family Medicine; Visit Provider Internal Medicine Cardiovascular Disease
DX: I48.0 Paroxysmal atrial fibrillation (principal); Z95.2 Presence of prosthetic heart valve; Z51.89 Encounter for other specified aftercare
CPT/HCPCS: S9472

== ENCOUNTER 2025-02-26 08:00 | Outpatient (RCR) | payer MEDICARE, OTHER, SELFPAY ==
--- NOTE | 2025-02-12 08:15 | RT.EKG_ITS ---
APPROVED REPORT Exam: Resting ECG Reason for Exam: cardiac rehab Patient Location: O HR:41 bpm ECG Measurements Heart Rate 41 AXIS ME [id number] P [id number] QRSd 98 QRS 73 QT 456 T -31 QTc 377 Conclusion Atrial fibrillation Abnormal R-wave progression, late transition...QRS area<0 in V5/V6 Left ventricular hypertrophy with repolarization abnormalities
== END 2025-03-02 23:59 | disposition home or self-care (01) ==
LOC: CR 08:00
PROVIDERS: PCP Family Medicine; Visit Provider Internal Medicine Cardiovascular Disease
DX: I48.0 Paroxysmal atrial fibrillation (principal); Z95.2 Presence of prosthetic heart valve; Z51.89 Encounter for other specified aftercare
CPT/HCPCS: S9472

== ENCOUNTER 2025-04-02 08:00 | Outpatient (RCR) | payer MEDICARE, OTHER, SELFPAY | END 2025-04-02 23:59 | disposition home or self-care (01) | LOC: CR 08:00 | PROVIDERS: PCP Family Medicine; Visit Provider Internal Medicine Cardiovascular Disease | DX: Z95.2 Presence of prosthetic heart valve (principal); I48.91 Unspecified atrial fibrillation; Z51.89 Encounter for other specified aftercare | CPT/HCPCS: S9472 ==